=== PATIENT | male | born 1960 | race Caucasian/White ===

== ENCOUNTER 2018-10-31 05:39 | Outpatient (CLI) | payer BC ==
[~2018-10-31] VITALS: Ht 170.2 cm; Wt 116.3 kg
[~2018-10-31 05:39] MED LIST: CLIN-62 PO; HCT25T PO; HYDR1CAP2 PO; HYDR1TAB8 OP; LEVO175T6 PO; NAPR1TAB PO; PRAV80TA2 PO; lisinopril; thyroid med; vytorin
[2018-10-31] MEDS ORDERED: GLUC-219 PO (10:52)
[2018-10-31] MEDS ORDERED: OMEP40CA36 PO (10:52)
[2018-10-31] MEDS ORDERED: NAPR220T66 PO (10:52)
[2018-10-31] MEDS ORDERED: RANI-515 PO (10:52)
[2018-10-31] MEDS ORDERED: LISI1TAB10 PO (10:52)
[2018-10-31] MEDS ORDERED: LEVO175T5 PO (10:52)
== END 2018-10-31 10:57 | disposition home or self-care (01) ==
LOC: PREOP 05:39
PROVIDERS: ATTEND Urology
DX: Z01.818 Encounter for other preprocedural examination (principal)

== ENCOUNTER 2019-06-28 12:07 | Emergency (ER) | payer BC ==
[~2019-06-28] VITALS: Ht 170 cm; Wt 119.9 kg
[~2019-06-28 12:07] MED LIST changes: +GLUC-219 PO; +LEVO175T5 PO; +LISI1TAB26 PO; +NAPR220T66 PO; +OMEP40CA27 PO; +RANI-609 PO
--- NOTE | 2019-06-28 12:56 | ED Integumentary General ---
General Chief Complaint: Laceration Stated Complaint: L INDEX FINGER LAC Nursing Triage Note: PT PRESENTS TO ED WITH COMPLAINTS OF LAC TO L HAND POINTER FINGER NAIL BED WHEN CHANGING OUT BLADES ON [employer] COORDINATOR. Source: patient Exam Limitations: no limitations History of Present Illness Date Seen by Provider: Jun 28, 2019 Time Seen by Provider: 12:56 Initial Comments 59-year-old male patient presents with complaints of a laceration to the left distal second finger including the distal nail. Incident occurred while he was trying to tighten the lawnmower blade and began to spin out of control. He states he does not know how long it's been since his last tetanus vaccination Location Injury Occurred: home Timing/Duration: just prior to arrival Location: hands (left second finger) Possible Cause: other (see history of present illness) Modifying Factors: worse with other (tenderness worse with palpation) Allergies and Home Medications Allergies Coded Allergies: No Known Drug Allergies (Verified , 05/22/08) Home Medications Glucosamine/D3/Boswellia Areli 1 Each Tablet, 1 EACH PO BID, (Reported) Hydrocodone Bit/Acetaminophen 1 Each Capsule, 1-2 EACH PO Q 4 - 6 HRS PRN Prescribed by: AARON PENDLETON on 04/19/10 1037 Levothyroxine Sodium 175 Mcg Tablet, 175 MCG PO DAILY, (Reported) Lisinopril/Hydrochlorothiazide 1 Each Tablet, 1 EACH PO DAILY, (Reported) Naproxen Sodium 220 Mg Tablet, 220 MG PO BID, (Reported) Naproxen Sodium/P-Ephed Hcl 1 Tab.sr .12 H Tab.sr.12h, 1 TAB PO DAILY, (Reported) Omeprazole 40 Mg Capsule.dr, 40 MG PO DAILY, (Reported) Ranitidine HCl 150 Mg Tablet, 150 MG PO DAILY PRN for HEARTBURN, (Reported) Patient Home Medication List Home Medication List Reviewed: Yes Review of Systems Review of Systems Constitutional: no symptoms reported Musculoskeletal: see HPI Skin: see HPI Psychiatric/Neurological: Denies Numbness, Denies Paresthesia, Denies Tingling, Denies Weakness All Other Systems Reviewed Negative Unless Noted: Yes (Negative excepted noted.) Past Cyeckve-Dfrktl-Xvnnzg Hx Past Med/Social Hx: Reviewed Nursing Past Med/Soc Hx Patient Social History Alcohol Use: Denies Use Recreational Drug Use: No Smoking Status: Current Someday Smoker Type Used: Cigarettes 2nd Hand Smoke Exposure: No Recent Foreign Travel: No Contact w/Someone Who Travel: No Recent Infectious Disease Expo: No Recent Hopitalizations: No Physical Abuse: No Sexual Abuse: No Mistreated: No Fear: No Immunizations Up To Date Tetanus Booster (TDap): Unknown PED Vaccines UTD: No Seasonal Allergies Seasonal Allergies: No Past Medical History Surgeries: Yes (bilat CTR, bilat ulnar release) Gallbladder Respiratory: No Cardiac: Yes Hypertension Neurological: No Reproductive Disorders: No Sexually Transmitted Disease: No Genitourinary: Yes Kidney Stones Gastrointestinal: No Musculoskeletal: No Endocrine: Yes Hypothyroidsim HEENT: No Cancer: No Psychosocial: No Integumentary: No Blood Disorders: No Family Medical History Reviewed Nursing Family Hx No Pertinent Family Hx Physical Exam Vital Signs Vital Signs - First Documented 06/28/19 12:20 Temp 36.8 Pulse 97 Resp 20 B/P (MAP) 122/81 (95) Pulse Ox 96 Capillary Refill : Less Than 3 Seconds General Appearance: WD/WN, no apparent distress Cardiovascular: normal peripheral pulses, no edema Extremities: normal range of motion, normal capillary refill, other (1.5 cm laceration involving the distal left second finger including the lateral border of the nail. Mild soft tissue tenderness noted.) Neurologic/Psychiatric: no motor/sensory deficits, alert, normal mood/affect, oriented x 3 Procedures/Interventions Wound Location: Upper Extremities (left index finger) Wound Length (cm): 1.5 Wound's Depth, Shape: superficial (involving lateral nail) Wound Explored: clean Betadine Prep?: Yes (and scrubbed vigorously with chlorhexidine and sterile saline) Anesthesia: 1% Lidocaine (1-1 ratio mixture of 0.5 percent Marcaine and 1 percent lidocaine) Volume Anesthetic (ccs): 4 Wound Debrided: minimal (lateral border of the nail removed) Suture: Vicryl Suture Size: 3-0 Number of Sutures: 1 Layer Closure?: 1 Sterile Dressing Applied?: Yes Progress Blood loss minimal. Patient tolerated the procedure well. Progress/Results/Core Measures Results/Orders My Orders Orders - ARAVIND CROSS Bupivacaine 0.5% Injection (Sensorcaine (06/28/19 13:15) Lidocaine 1% Inj 20 Ml (Xylocaine 1% Inj (06/28/19 13:15) Dipht,Pertuss(Acell),Tet Adult (Boostrix (06/28/19 13:15) Medications Given in ED Current Medications Medications Dose Ordered Sig/Luis Armando Route Start Time Stop Time Status Last Admin Dose Admin Bupivacaine HCl 30 ml ONCE ONCE INJ 06/28/19 13:15 06/28/19 13:16 DC 06/28/19 13:00 30 ML Diphtheria/ Tetanus/Acell Pertussis 0.5 ml ONCE ONCE IM 06/28/19 13:15 06/28/19 13:16 DC 06/28/19 13:25 0.5 ML Lidocaine HCl 20 ml ONCE ONCE INJ 06/28/19 13:15 06/28/19 13:16 DC 06/28/19 13:00 20 ML Vital Signs/I&O 06/28/19 12:20 Temp 36.8 Pulse 97 Resp 20 B/P (MAP) 122/81 (95) Pulse Ox 96 Blood Pressure Mean: 95 Departure Communication (Admissions) Patient seen, evaluated, and wound repair performed. Patient given a 4 pronged AlumaFoam finger splint to begin using tomorrow. Impression Primary Impression: Laceration of left index finger with damage to nail Qualified Codes: S61.311A - Laceration without foreign body of left index finger with damage to nail, initial encounter Disposition: HOME, SELF-CARE Condition: Improved Departure-Patient Inst. Decision time for Depature: 13:05 Referrals: AUSTIN MORE MD (PCP/Family) Primary Care Physician Patient Instructions: Wound Care (DC) Add. Discharge Instructions: All discharge instructions reviewed with patient and/or family. Voiced understanding. Tylenol extra strength [id number] as directed for pain. Ibuprofen 800 mg by mouth every 8 hours as needed for pain. Elevate the left hand on pillows. Ice pack for 20 minute intervals as needed. Tomorrow morning you may remove the bandage and shower with antibacterial soap. Apply triple antibiotic ointment and cover with a bandage. You may use the finger splint as needed to protect the finger while working. Follow-up with Dr. More's office as an outpatient if needed. Return to the emergency department for worsened pain, redness, fever, drainage, or any other concerns. Images Extremities-Upper 1 - laceration Copy Copies To 1: AUSTIN MORE MD, GRETCHEN L PA Jun 28, 2019 12:56
[2019-06-28] MEDS ORDERED: BUPIVACAINE 0.5% 30 ML (SENSORCAINE) VIAL INJ ONE (13:15)
[2019-06-28] MEDS ORDERED: TETANUS,DIPTH,PERTUSS P/F (BOOSTRIX) 0.5 ML VIAL IM ONE (13:15)
[2019-06-28] MEDS ORDERED: LIDOCAINE 1% INJ 20 ML 20 ML VIAL INJ ONE (13:15)
[2019-06-28 13:40] VITALS: BP 142/87
--- OUTSIDE RECORDS SUMMARY | 2019-07-02 00:38 | XMS REPORT ---
Author Author Shukri MENDOZA Organization [facility] Address [address] [place] [address] Care Team Providers Care Staff Development Manager Name Role Phone ZHAO MENDOZA Unavailable PROBLEMS Type Condition ICD9-CM Code FMU30-LQ Code Onset Dates Condition S tatus SNOMED Code Problem Urinary tract infection, site not specified 599.0 Active 03143208 Problem Psychosexual dysfunction with inhibited sexual excitement 302.72 Active 603800447030840 Problem Other specified examination V72.85 Ac tive 975341521 Problem Health examination of defined subpopulation V70.5 Active 928649758 Problem Dysuria 788.1 Active 21006863 Problem Hematuria, unspecified 599.70 Active 02825962 ALLERGIES No Information ENCOUNTERS Encounter Location Date Diagnosis [facility] [address] [id number] [address] [place] [address] [id number] 02 Sep, 2014 Dental examination V72.2 [facility] [address] [facility] [id number] [address] [place] [address] Jul, [facility] [address] [facility] [id number] [address] [place] [address] Jul, [facility] [address] [facility] [id number] [address] [place] [address] Apr, [facility] [address] [facility] [id number] [address] [place] [address] Apr, [facility] [address] [facility] [id number] [address] [place] [address] Feb, [facility] [address] [facility] [id number] [address] [place] [address] Feb, [facility] [address] [facility] [id number] [address] [place] [address] Jan, [facility] [address] [id number] [address] [place] [address], [place] [address] Dec, [facility] [address] [id number] [address] [place] [address], [place] [address] Nov, [facility] [address] [id number] [address] [place] [address], [place] [address] Oct, [facility] [address] [id number] [address] [place] [address], [place] [address] Oct, [facility] [address] [id number] [address] [place] [address], [place] [address] Oct, [facility] [address] [id number] [address] [place] [address], [place] [address] Oct, [facility] [address] [id number] [address] [place] [address], [place] [address] Sep, [facility] [address] [id number] [address] [place] [address], [place] [address] Sep, [facility] [address] [id number] [address] [place] [address], [place] [address] Sep, [facility] [address] [id number] [address] [place] [address], [place] [address] Sep, [facility] [address] [id number] [address] [place] [address], [place] [address] Jul, [facility] [address] [id number] [address] [place] [address] Jul, [facility] [address] [id number] [address] [place] [address], [place] [address] Jul, [facility] [address] [id number] [address] [place] [address], [place] [address] May, [facility] [address] [id number] [address] [place] [address], [place] [address] Apr, [facility] [address] [id number] [address] [place] [address] Apr, [facility] [address] [id number] [address] [place] [address], [place] [address] Apr, [facility] [address] [id number] [address] [place] [address], [place] [address] Apr, [facility] [address] [id number] [address] [place] [address], [place] [address] Feb, [facility] [address] [id number] [address] [place] [address], [place] [address] Feb, [facility] [address] [id number] [address] [place] [address], [place] [address] Feb, [facility] [address] [id number] [address] [place] [address], [place] [address] Jan, [facility] [address] [id number] [address] [place] [address], [place] [address] Jan, [facility] [address] [id number] [address] [place] [address], [place] [address] Jan, [facility] [address] [id number] [address] [place] [address], [place] [address] Jan, [facility] [address] [id number] [address] [place] [address], [place] [address] Dec, [facility] [address] [id number] [address] [place] [address], [place] [address] 15 Dec, 2011 [facility] [address] [id number] [address] [place] [address], [place] [address] Sep, [facility] [address] [id number] [address] [place] [address], [place] [address] Sep, [facility] [address] [id number] [address] [place] [address], [place] [address] Jun, [facility] [address] [id number] [address] [place] [address], [place] [address] Apr, [facility] [address] [facility] [id number] [address] [address] Jan, [facility] [address] [facility] [id number] [address] [address] Jan, IMMUNIZATIONS No Known Immunizations SOCIAL HISTORY Never Assessed REASON FOR VISIT PLAN OF CARE VITAL SIGNS MEDICATIONS Unknown Medications RESULTS No Results PROCEDURES No Known procedures INSTRUCTIONS MEDICATIONS ADMINISTERED No Known Medications
== END 2019-06-28 13:40 | disposition home or self-care (01) ==
LOC: EDUNIT# 12:07 → ER 12:08
DX: S61.311A Laceration without foreign body of left index finger with damage to nail, initial encounter (principal); I10 Essential (primary) hypertension; E03.9 Hypothyroidism, unspecified; F17.210 Nicotine dependence, cigarettes, uncomplicated; Z23 Encounter for immunization; W28.XXXA Contact with powered lawn mower, initial encounter; Y92.009 Unspecified place in unspecified non-institutional (private) residence as the place of occurrence of the external cause
CPT/HCPCS: 12001; 64450; 90715

== ENCOUNTER 2019-10-03 05:30 | Outpatient (RCR) | payer BC ==
[2019-09-24 09:36] VITALS: BP 119/77
[2019-09-24 10:31] LABS: BILIRUBIN,URINE NEGATIVE (NEGATIVE); CLARITY,URINE CLEAR; COLOR,URINE YELLOW; GLUCOSE, URINE (UA) NEGATIVE (NEGATIVE); KETONES,URINE NEGATIVE (NEGATIVE); LEUKOCYTE ESTERASE ,URINE NEGATIVE (NEGATIVE); NITRITE,URINE NEGATIVE (NEGATIVE); PROTEIN,URINE NEGATIVE (NEGATIVE)
[2019-09-24 10:38] LABS: BASOPHILS % (AUTO) 1 % (0-10); EOSINOPHILS # (AUTO) 0.1 10^3/uL (0.0-0.3); EOSINOPHILS % (AUTO) 2 % (0-10); HEMATOCRIT 47 % (40-54); HEMOGLOBIN 15.5 G/DL (13.3-17.7); LYMPHOCYTES # (AUTO) 1.8 X 10^3 (1.0-4.0); LYMPHOCYTES % (AUTO) 28 % (12-44); MEAN CORPUSCULAR HEMOGLOBIN 30 PG (25-34); MEAN CORPUSCULAR HGB CONC 33 G/DL (32-36); MEAN CORPUSCULAR VOLUME 91 FL (80-99); MEAN PLATELET VOLUME 10.9 FL (7.4-10.4); MONOCYTES # (AUTO) 0.4 X 10^3 (0.0-1.0); MONOCYTES % (AUTO) 6 % (0-12); NEUTROPHILS # (AUTO) 4.2 X 10^3 (1.8-7.8); NEUTROPHILS % (AUTO) 64 % (42-75); PLATELET COUNT 184 10^3/uL (130-400); RED CELL DISTRIBUTION WIDTH 14.2 % (10.0-14.5); WHITE BLOOD COUNT 6.6 10^3/uL (4.3-11.0)
[2019-09-24 10:39] LABS: BACTERIA,URINE NEGATIVE /HPF; SQUAMOUS EPITHELIAL CELL,UR 0-2 /HPF
[2019-09-24 10:46] LABS: PROTHROMBIN TIME PATIENT 13.2 SEC (12.2-14.7)
--- NOTE | 2019-09-24 10:51 | Diagnostic Imaging Report ---
INDICATION: Preop for knee replacement surgery. Time of exam 10:16 AM Comparison is made with prior chest 09/03/2008. The heart size is normal. The pulmonary vascularity is unremarkable. The lungs are clear. No infiltrate, effusion or pneumothorax is detected. Impression: No acute cardiopulmonary process is detected. Dictated by: Dictated on workstation # [id number]
[2019-09-24 10:57] LABS: ALANINE AMINOTRANSFERASE 35 U/L (0-55); ALBUMIN 4.1 GM/DL (3.2-4.5); ALKALINE PHOSPHATASE 60 U/L (40-136); BUN/CREATININE RATIO 20; CALCIUM 9.4 MG/DL (8.5-10.1); CARBON DIOXIDE 21 MMOL/L (21-32); CHLORIDE 105 MMOL/L (98-107); CREATININE SERUM 1.08 MG/DL (0.60-1.30); GFR ESTIMATED > 60; GLUCOSE 125 MG/DL (70-105); POTASSIUM 3.7 MMOL/L (3.6-5.0); SODIUM 137 MMOL/L (135-145); TOTAL PROTEIN 7.1 GM/DL (6.4-8.2)
[~2019-10-03] VITALS: Ht 170 cm; Wt 118.9 kg
== END 2019-10-03 13:26 | disposition home or self-care (01) ==
LOC: PREOP 05:30
PROVIDERS: ATTEND Orthopaedic Surgery
DX: Z01.812 Encounter for preprocedural laboratory examination (principal); Z01.811 Encounter for preprocedural respiratory examination; Z01.810 Encounter for preprocedural cardiovascular examination; M17.12 Unilateral primary osteoarthritis, left knee; R53.83 Other fatigue
CPT/HCPCS: 36415; 71046; 80053; 81000; 85025; 85610; 86850; 86900; 86901; 87635

== ENCOUNTER 2019-10-08 05:58 | Inpatient (IN) | payer BC ==
--- NOTE | 2019-09-28 15:40 | HISTORY AND PHYSICAL ---
DATE OF SERVICE: 10/08/2019 DATE OF ADMISSION: 10/08/2019. This will be for inpatient admission for right total knee arthroplasty. SUMMARY: The patient is a 59-year-old gentleman with progressively worsening left knee pain. Radiographs reveal severe medial and patellofemoral arthrosis. He has undergone treatment with injections as well as anti-inflammatories and rest. He reports that he has progressed to the point of the symptoms that he has difficulty with activities of daily living. Because of this, it was elected to proceed with surgical intervention. REVIEW OF SYSTEMS: No chest pain, no shortness of breath, no dysuria. PAST MEDICAL HISTORY: Hypertension. PAST SURGICAL HISTORY: Carpal and cubital tunnel releases bilaterally, cholecystectomy and left knee arthroscopy. FAMILY HISTORY: Noncontributory. PRIMARY CARE PROVIDER: Dr. More. MEDICATIONS: Hydrochlorothiazide, diclofenac, hydrocodone. ALLERGIES: No known drug allergies. SOCIAL HISTORY: The patient denies alcohol use, denies tobacco use. PHYSICAL EXAMINATION: GENERAL: The patient is well developed, well-nourished, in no acute distress. HEENT: Normocephalic, atraumatic. Pupils are equal, round and reactive to light. Oropharynx is clear. NECK: Supple, no lymphadenopathy. LUNGS: Clear to auscultation bilaterally. HEART: Regular rate and rhythm. ABDOMEN: Soft, nontender, nondistended. EXTREMITIES: The left knee demonstrates mild effusion. There is no erythema or warmth. Range of motion is 0/2/120. He has negative anterior drawer, negative posterior drawer. No varus valgus laxity. He is tender along his medial joint line. He has crepitus with range of motion. Pain with patellar loading. He ambulates with an antalgic gait. IMPRESSION: Severe left knee osteoarthritis, unresponsive to conservative measures. PLAN: Left total knee arthroplasty. Risks, benefits, options, ramifications and recovery have been discussed at length with the patient. He understands and wishes to proceed. He will require regular inpatient admission due to pain management, need for physical therapy and comorbidities. Job ID: [id number] DocumentID: [id number] Dictated Date: 09/28/2019 14:49:22 Music Artist Date: 09/28/2019 15:39:34 Dictated By: MARK ANTHONY GONZALES MD
[2019-10-08] VITALS (13 sets, daily range): BP systolic 132–181; BP diastolic 58–106
[~2019-10-08] VITALS: Ht 170 cm; Wt 118.9 kg
--- OUTSIDE RECORDS SUMMARY | 2019-10-08 06:04 | XMS REPORT ---
Author Author Shukri MENDOZA Organization [facility] Address [address] [place] [address] Care Team Providers Care Program Management Specialist Name Role Phone ZHAO MENDOZA Unavailable PROBLEMS Type Condition ICD9-CM Code UQT07-YP Code Onset Dates Condition S tatus SNOMED Code Problem Urinary tract infection, site not specified 599.0 Active 50762712 Problem Psychosexual dysfunction with inhibited sexual excitement 302.72 Active 499691541738009 Problem Other specified examination V72.85 Ac tive 090443596 Problem Health examination of defined subpopulation V70.5 Active 169917134 Problem Dysuria 788.1 Active 50204281 Problem Hematuria, unspecified 599.70 Active 36034684 ALLERGIES No Information ENCOUNTERS Encounter Location Date Diagnosis [facility] [address] [id number] [place] [id number] Sep, Dental examination V72.2 [facility] [address] [address] Jul, [facility] [address] [address] Jul, [facility] [address] [address] Apr, [facility] [address] [address] Apr, [facility] [address] [address] Feb, [facility] [address] [address] Feb, [facility] [address] [address] Jan, [facility] [address] [address] Dec, [facility] [address] [facility] [id number] [facility] [place] [address] Nov, [facility] [address] [id number] [place] [address] Oct, [facility] [address] [id number] [place] [address] Oct, [facility] [address] [id number] [place] [address] Oct, [facility] [address] [id number] [place] [address] Oct, [facility] [address] [id number] [place] [address] Sep, [facility] [address] [id number] [place] [address] Sep, [facility] [address] [id number] [place] [address] Sep, [facility] [address] [id number] [place] [address] Sep, [facility] [address] [id number] [place] [address] Jul, [facility] [address] [id number] [place] [address] Jul, [facility] [address] [id number] [place] [address] Jul, [facility] [address] [id number] [place] [address] May, [facility] [address] [id number] [place] [address] Apr, [facility] [address] [id number] [place] [address] Apr, [facility] [address] [id number] [place] [address] Apr, [facility] [id number] [place] [address] Apr, [facility] [id number] [place] [address] Feb, [facility] [id number] [place] [address] Feb, [facility] [id number] [place] [address] Feb, [facility] [id number] [place] [address] Jan, [facility] [id number] [place] [address] Jan, [facility] [id number] [place] [address] Jan, [facility] [id number] [place] [address] Jan, [facility] [id number] [place] [address] Dec, [facility] [id number] [place] [address] Dec, [facility] [id number] [place] [address] Sep, [facility] [id number] [place] [address] Sep, [facility] [id number] [place] [address] Jun, [facility] [id number] [place] [address] Apr, [facility] [id number] [place] [address] Jan, [facility] [id number] [place] [address] Jan, IMMUNIZATIONS No Known Immunizations SOCIAL HISTORY Never Assessed REASON FOR VISIT PLAN OF CARE VITAL SIGNS MEDICATIONS Unknown Medications RESULTS No Results PROCEDURES No Known procedures INSTRUCTIONS MEDICATIONS ADMINISTERED No Known Medications
--- OUTSIDE RECORDS SUMMARY | 2019-10-08 06:04 | XMS REPORT ---
Author Author Shukri MENDOZA Organization [facility] Address [address] [place] [address] Care Team Providers Care Retort Fireman Name Role Phone ZHAO MENDOZA Unavailable PROBLEMS Type Condition ICD9-CM Code YPG76-OT Code Onset Dates Condition S tatus SNOMED Code Problem Urinary tract infection, site not specified 599.0 Active 33644129 Problem Psychosexual dysfunction with inhibited sexual excitement 302.72 Active 413704788371988 Problem Other specified examination V72.85 Ac tive 935851629 Problem Health examination of defined subpopulation V70.5 Active 010908367 Problem Dysuria 788.1 Active 59700307 Problem Hematuria, unspecified 599.70 Active 35590513 ALLERGIES No Information ENCOUNTERS Encounter Location Date Diagnosis [facility] [address] [id number] [address] [place] [address] [id number] 02 Sep, 2014 Dental examination V72.2 [facility] [address] [facility] [id number] [address] [place] [phone] Jul, [facility] [address] [facility] [id number] [address] [place] [address] Jul, [facility] [address] [facility] [id number] [address] [place] [address] Apr, [facility] [address] [facility] [id number] [address] [place] [phone] Apr, [facility] [address] [facility] [id number] [address] [place] [address] Feb, [facility] [address] [facility] [id number] [address] [place] [address] Feb, [facility] [address] [facility] [id number] [address] [place] [phone] Jan, [facility] [address] [id number] [address] [place] [address], [place] [address] Dec, [facility] [address] [id number] [address] [place] [address], [place] [address] Nov, [facility] [address] [id number] [address] [place] [address], [place] [address] Oct, [facility] [address] [id number] [address] [place] [address], [place] [address] Oct, [facility] [address] [id number] [address] [place] [address], [place] [address] Oct, [facility] [address] [id number] [address] [place] [address], [place] [address] Oct, [facility] [address] [id number] [address] [place] [address], [place] [address] Sep, [facility] [address] [id number] [address] [place] [address], [place] [address] Sep, [facility] [address] [id number] [address] [place] [address], [place] [address] Sep, [facility] [address] [id number] [address] [place] [address], [place] [address] Sep, [facility] [address] [id number] [address] [place] [address], [place] [address] Jul, [facility] [address] [id number] [address] [place] [phone] Jul, [facility] [address] [id number] [address] [place] [address], [place] [address] Jul, [facility] [address] [id number] [address] [place] [address], [place] [address] May, [facility] [address] [id number] [address] [place] [address], [place] [address] Apr, [facility] [address] [id number] [address] [place] [phone] Apr, [facility] [address] [id number] [address] [place] [address], [place] [address] Apr, [facility] [address] [id number] [address] [place] [address], [place] [address] Apr, [facility] [address] [id number] [address] [place] [address], [place] [address] Feb, [facility] [address] [id number] [address] [place] [address], [place] [address] Feb, [facility] [address] [id number] [address] [place] [address], [place] [address] Feb, [facility] [address] [id number] [address] [place] [address], [place] [address] Jan, [facility] [address] [id number] [address] [place] [address], [place] [address] Jan, [facility] [address] [id number] [address] [place] [address], [place] [address] Jan, [facility] [address] [id number] [address] [place] [address], [place] [address] Jan, [facility] [address] [id number] [address] [place] [address], [place] [address] Dec, [facility] [address] [id number] [address] [place] [address], [place] [address] 15 Dec, 2011 [facility] [address] [id number] [address] [place] [address], [place] [address] Sep, [facility] [address] [id number] [address] [place] [address], [place] [address] Sep, [facility] [address] [id number] [address] [place] [address], [place] [address] Jun, [facility] [address] [id number] [address] [place] [address], [place] [address] Apr, [facility] [address] [facility] [id number] [address] [address] Jan, [facility] [address] [facility] [id number] [address] [address] Jan, IMMUNIZATIONS No Known Immunizations SOCIAL HISTORY Never Assessed REASON FOR VISIT PLAN OF CARE VITAL SIGNS MEDICATIONS Unknown Medications RESULTS No Results PROCEDURES No Known procedures INSTRUCTIONS MEDICATIONS ADMINISTERED No Known Medications
--- OUTSIDE RECORDS SUMMARY | 2019-10-08 06:04 | XMS REPORT ---
Author Author Shukri MENDOZA Organization [facility] Address [address] [place] [address] Care Team Providers Care Hospice Entrance Attendant Name Role Phone ZHAO MENDOZA Unavailable PROBLEMS Type Condition ICD9-CM Code GIS66-MS Code Onset Dates Condition S tatus SNOMED Code Problem Urinary tract infection, site not specified 599.0 Active 19832469 Problem Psychosexual dysfunction with inhibited sexual excitement 302.72 Active [id number] Problem Other specified examination V72.85 Ac tive 976416504 Problem Health examination of defined subpopulation V70.5 Active 977380680 Problem Dysuria 788.1 Active 07933920 Problem Hematuria, unspecified 599.70 Active 21781385 ALLERGIES No Information ENCOUNTERS Encounter Location Date Diagnosis [facility] [address] [id number] [address] [place] [address] [id number] 02 Sep, 2014 Dental examination V72.2 [facility] [address] [facility] [id number] [address] [place] [phone] Jul, [facility] [address] [facility] [id number] [address] [place] [address] Jul, [facility] [address] [facility] [id number] [address] [place] [address] Apr, [facility] [address] [facility] [id number] [address] [place] [phone] Apr, [facility] [address] [facility] [id number] [address] [place] [address] Feb, [facility] [address] [facility] [id number] [address] [place] [phone] Feb, [facility] [address] [facility] [id number] [address] [place] [phone] Jan, [facility] [address] [id number] [address] [place] [address], [place] [address] Dec, [facility] [address] [id number] [address] [place] [address], [place] [address] Nov, [facility] [address] [id number] [address] [place] [address], [place] [address] Oct, [facility] [address] [id number] [address] [place] [address], [place] [address] Oct, [facility] [address] [id number] [address] [place] [address], [place] [address] Oct, [facility] [address] [id number] [address] [place] [address], [place] [address] Oct, [facility] [address] [id number] [address] [place] [address], [place] [address] Sep, [facility] [address] [id number] [address] [place] [address], [place] [address] Sep, [facility] [address] [id number] [address] [place] [address], [place] [address] Sep, [facility] [address] [id number] [address] [place] [address], [place] [address] Sep, [facility] [address] [id number] [address] [place] [address], [place] [address] Jul, [facility] [address] [id number] [address] [place] [phone] Jul, [facility] [address] [id number] [address] [place] [address], [place] [address] Jul, [facility] [address] [id number] [address] [place] [address], [place] [address] May, [facility] [address] [id number] [address] [place] [address], [place] [address] Apr, [facility] [address] [id number] [address] [place] [phone] Apr, [facility] [address] [id number] [address] [place] [address], [place] [address] Apr, [facility] [address] [id number] [address] [place] [address], [place] [address] Apr, [facility] [address] [id number] [address] [place] [address], [place] [address] Feb, [facility] [address] [id number] [address] [place] [address], [place] [address] Feb, [facility] [address] [id number] [address] [place] [address], [place] [address] Feb, [facility] [address] [id number] [address] [place] [address], [place] [address] Jan, [facility] [address] [id number] [address] [place] [address], [place] [address] Jan, [facility] [address] [id number] [address] [place] [address], [place] [address] Jan, [facility] [address] [id number] [address] [place] [address], [place] [address] Jan, [facility] [address] [id number] [address] [place] [address], [place] [address] Dec, [facility] [address] [id number] [address] [place] [address], [place] [address] 15 Dec, 2011 [facility] [address] [id number] [address] [place] [address], [place] [address] Sep, [facility] [address] [id number] [address] [place] [address], [place] [address] Sep, [facility] [address] [id number] [address] [place] [address], [place] [address] Jun, [facility] [address] [id number] [address] [place] [address], [place] [address] Apr, [facility] [address] [facility] [id number] [address] [address] Jan, [facility] [address] [facility] [id number] [address] [address] Jan, IMMUNIZATIONS No Known Immunizations SOCIAL HISTORY Never Assessed REASON FOR VISIT PLAN OF CARE VITAL SIGNS MEDICATIONS Unknown Medications RESULTS No Results PROCEDURES No Known procedures INSTRUCTIONS MEDICATIONS ADMINISTERED No Known Medications
--- OUTSIDE RECORDS SUMMARY | 2019-10-08 06:04 | XMS REPORT ---
Author Author Shukri MENDOZA Organization [facility] Address [address] [place] [address] Care Team Providers Care Boiling Tub Operator Name Role Phone ZHAO MENDOZA Unavailable PROBLEMS Type Condition ICD9-CM Code QGO30-VZ Code Onset Dates Condition S tatus SNOMED Code Problem Urinary tract infection, site not specified 599.0 Active 84252917 Problem Psychosexual dysfunction with inhibited sexual excitement 302.72 Active 436938261994190 Problem Other specified examination V72.85 Ac tive 855100336 Problem Health examination of defined subpopulation V70.5 Active 437500824 Problem Dysuria 788.1 Active 96694390 Problem Hematuria, unspecified 599.70 Active 63122875 ALLERGIES No Information ENCOUNTERS Encounter Location Date Diagnosis [facility] [address] [id number] [address] [place] [id number] 02 Sep, 2014 Dental examination V72.2 [facility] [address] [facility] [id number] [address] [place] [phone] Jul, [facility] [address] [facility] [id number] [address] [place] [address] Jul, [facility] [address] [facility] [id number] [address] [place] [address] Apr, [facility] [address] [facility] [id number] [address] [place] [address] Apr, [facility] [address] [facility] [id number] [address] [place] [address] Feb, [facility] [address] [facility] [id number] [address] [place] [address] Feb, [facility] [address] [facility] [id number] [address] [place] [address] Jan, [facility] [address] [id number] [address] [place] [address], [place] [address] Dec, [facility] [address] [id number] [address] [place] [address], [place] [address] Nov, [facility] [address] [id number] [address] [place] [address], [place] [address] Oct, [facility] [address] [id number] [address] [place] [address], [place] [address] Oct, [facility] [address] [id number] [address] [place] [address], [place] [address] Oct, [facility] [address] [id number] [address] [place] [address], [place] [address] Oct, [facility] [address] [id number] [address] [place] [address], [place] [address] Sep, [facility] [address] [id number] [address] [place] [address], [place] [address] Sep, [facility] [address] [id number] [address] [place] [address], [place] [address] Sep, [facility] [address] [id number] [address] [place] [address], [place] [address] Sep, [facility] [address] [id number] [address] [place] [address], [place] [address] Jul, [facility] [address] [id number] [address] [place] [phone] Jul, [facility] [address] [id number] [address] [place] [address], [place] [id number] Jul, [facility] [address] [id number] [address] [place] [address], [place] [address] May, [facility] [address] [id number] [address] [place] [address], [place] [address] Apr, [facility] [address] [id number] [address] [place] [phone] Apr, [facility] [address] [id number] [address] [place] [address], [place] [address] Apr, [facility] [address] [id number] [address] [place] [address], [place] [address] Apr, [facility] [address] [id number] [address] [place] [address], [place] [address] Feb, [facility] [address] [id number] [address] [place] [address], [place] [address] Feb, [facility] [address] [id number] [address] [place] [address], [place] [address] Feb, [facility] [address] [id number] [address] [place] [address], [place] [address] Jan, [facility] [address] [id number] [address] [place] [address], [place] [address] Jan, [facility] [address] [id number] [address] [place] [address], [place] [address] Jan, [facility] [address] [id number] [address] [place] [address], [place] [address] Jan, [facility] [address] [id number] [address] [place] [address], [place] [address] Dec, [facility] [address] [id number] [address] [place] [address], [place] [address] 15 Dec, 2011 [facility] [address] [id number] [address] [place] [address], [place] [address] Sep, [facility] [address] [id number] [address] [place] [address], [place] [address] Sep, [facility] [address] [id number] [address] [place] [address], [place] [address] Jun, [facility] [address] [id number] [address] [place] [address], [place] [address] Apr, [facility] [address] [facility] [id number] [address] [address] Jan, [facility] [address] [facility] [id number] [address] [address] Jan, IMMUNIZATIONS No Known Immunizations SOCIAL HISTORY Never Assessed REASON FOR VISIT PLAN OF CARE VITAL SIGNS MEDICATIONS Unknown Medications RESULTS No Results PROCEDURES No Known procedures INSTRUCTIONS MEDICATIONS ADMINISTERED No Known Medications
[2019-10-08] MEDS ORDERED: CEFUROXIME INJECTION 1,500 MG in WATER (STERILE) FOR INJECTION 15 ML IV ONE (06:15)
[2019-10-08] MEDS: LACTATED RINGERS 1,000 ML IV PRN ×2 (06:38→08:05)
[2019-10-08] MEDS ORDERED: LIDOCAINE PF 2% 5 ML (XYLOCAINE) VIAL ONE ×2 (06:43→07:53)
[2019-10-08] MEDS ORDERED: MIDAZOLAM 2 MG/2 ML (VERSED) VIAL ONE (06:43)
[2019-10-08] MEDS ORDERED: CATHETER FLUSH 10 ML SYR IV PRN (07:00)
[2019-10-08] MEDS ORDERED: diphenhydrAMINE 50 MG/ML INJ (BENADRYL) IVP PRN (07:15)
[2019-10-08] MEDS ORDERED: ACETAMINOPHEN 325 MG TABLET PO PRN (07:15)
[2019-10-08] MEDS ORDERED: ONDANSETRON 4 MG/2 ML (SDV) Z0FRAN IVP PRN ×2 (07:15→09:45)
[2019-10-08] MEDS ORDERED: fentaNYL INJECTION 100 MCG/2 ML AMP ONE ×2 (07:26→07:59)
--- NOTE | 2019-10-08 07:30 | Progress Note-Post Operative ---
Post-Operative Progess Note Surgeon (s)/Access Specialist (s) Surgeon MARK ANTHONY GONZALES MD Access Specialist: Burt Rosenthal Pre-Operative Diagnosis left knee primary osteoarthritis Post-Operative Diagnosis left knee primary osteoarthritis Procedure & Operative Findings Date of Procedure 10/08/19 Procedure Performed/Findings left total knee arthroplasty Anesthesia Type GETA Estimated Blood Loss Estimated blood loss (mL): minimal Specimens/Packing Specimens Removed none Packing: none MARK ANTHONY GONZALES MD Oct 08, 2019 07:30
--- NOTE | 2019-10-08 07:30 | Progress Note-Pre Operative ---
Pre-Operative Progress Note H&P Reviewed The H&P was reviewed, patient examined and no changes noted. Date Seen by Provider: Oct 08, 2019 Time Seen by Provider: 07:15 Date H&P Reviewed: Oct 08, 2019 Time H&P Reviewed: 07:11 Pre-Operative Diagnosis: left knee primary osteoarthritis MARK ANTHONY GONZALES MD Oct 08, 2019 07:30
[2019-10-08] MEDS ORDERED: OXYC1TAB87 PO (07:32)
--- NOTE | 2019-10-08 07:33 | D/C HH Face to Face Order ---
D/C Face to Face Orders Reconcile Patient Problems Problems Reviewed?: Yes Instructions for Patient Via [employer], Patient Instructions/FollowUp: three weeks Physician to follow Patient: three weeks Discharge Diet for Home: No Restrictions Patient Data-Allergies,Ht & Wt Patient Allergies: Coded Allergies: No Known Drug Allergies (Unverified , 09/24/19) Height (Feet): 5 Height (Inches): 7.00 Weight (Pounds): 256 Weight (Ounces): 6.0 Home Health Need/Face to Face Date of Face to Face: Oct 08, 2019 Clinical Findings: Instability, Muscle weakness, Pain with ambulation, Unsteady gait I have seen Pt pysd-xr-qyxo: Yes Discharged To: Home Diagnosis/Conditions: left total knee arthroplasty Patient is Homebound due to: Lexy fall risk due to instabilty, Muscle weakness, Pain w/ambulation Homebound Status Due to the above stated illness, injury or surgical procedure (medical condition or diagnosis) and associated clinical findings, the patient is homebound because of his/her inability to leave home except with aid of a supportive device and/or person AND leaving the home requires a considerable and taxing effort or is medically contraindicated. Pt req the following assistanc: [facility] Nursing Orders Home Health Services Order: Physical Therapy-Evaluate & Treat DC left knee rosendo and apply steri strips 10/22/19 Home Health Infusion Therapy Line Start Date: Oct 08, 2019 Therapy Orders Therapy Orders: Physical Therapy, PT to assess for OT Therapy Specific Orders: Eval assistive deivces, Teach enviro modifications/safety, Gait training, Increase strength/endurance, Provider maintenance therapy, Restore ROM Certify Stmt I certify that this patient is under my care and that I, a nurse practitioner or a physician; a fleet assistant working with me, had a face to face encounter that - meets the physician face to face encounter requirements with this patient as dated. MARK ANTHONY GONZALES MD Oct 08, 2019 07:33
[2019-10-08] MEDS ORDERED: INTRA-ARTICULAR IU ONE ×5 (07:45)
[2019-10-08] MEDS ORDERED: proPOfol 200 MG/20 ML (DIPRIVAN) VIAL IV ONE (07:53)
[2019-10-08] MEDS ORDERED: DEXAMETHASONE 10 MG/ML (DECADRON) 1 ML VIAL ONE (07:53)
[2019-10-08] MEDS ORDERED: BUPIVACAINE 0.5% 30 ML (SENSORCAINE) VIAL ONE (07:53)
[2019-10-08] MEDS ORDERED: ONDANSETRON 4 MG/2 ML (SDV) Z0FRAN ONE ×2 (07:53→09:32)
[2019-10-08] MEDS ORDERED: SEVOFLURANE (ULTANE) 15 ML INHAL SOLN ONE ×6 (07:53→09:08)
[2019-10-08] MEDS ORDERED: TRANEXAMIC ACID 100 MG/ML 10 ML INJECTION IV ONE (08:07)
[2019-10-08] MEDS ORDERED: morphine PCA 100 MG/100 ML BAG IV PRN (09:00)
[2019-10-08] MEDS ORDERED: morphine INJ 10 MG/ML 1ML (SYR OR VIAL) ONE (09:32)
[2019-10-08] MEDS ORDERED: HYDROmorphone 2 MG/ML VIAL (DILAUDID) ONE (09:45)
[2019-10-08] MEDS ORDERED: HYDROmorphone 2 MG/ML VIAL (DILAUDID) IV ONE (09:45)
[2019-10-08] MEDS ORDERED: morphine INJ 10 MG/ML 1ML (SYR OR VIAL) IVP ONE (09:45)
--- NOTE | 2019-10-08 10:20 | NUR ---
PEDRO PABLO HAWLEY admitted to [id number], with an admitting diagnosis of post op left total knee, on 10/08/19 from PACU via bed, accompanied by staff.PEDRO PABLO HAWLEY introduced to surroundings, call light, bed controls, phone, TV, temperature control, lights, meal times, smoking policy, visitor policy, side rail policy, bathrooms and showers. Patient Rights given to patient in the handbook. PEDRO PABLO HAWLEY verbalizes understanding that [facility] is not responsible for the loss or damage to any personal effects or valuables that are kept in the patients posession during their hospitalization. PEDRO PABLO HAWLEY verbalizes understanding of Interdisciplinary Patient Education. Patient and/or family were informed about the Rapid Response Team and its purpose.
--- NOTE | 2019-10-08 10:32 | Diagnostic Imaging Report ---
INDICATION: Postoperative. TECHNIQUE: 2 post operative radiographs of the left knee CORRELATION STUDY: None FINDINGS: There are postsurgical changes of a total knee arthroplasty. Alignment is anatomic. Installed hardware appearing unremarkable. Linear lucency through the distal central femur and proximal tibia. Overlying soft tissue gas collections and skin rosendo are present. IMPRESSION: Postsurgical changes of a left knee replacement. Dictated by: Dictated on workstation # [id number]
--- NOTE | 2019-10-08 10:40 | Progress Note ---
Standard Progress Note Progress Notes/Assess & Plan Date Seen by a Provider: Oct 08, 2019 Time Seen by a Provider: 09:45 Progress/Assessment & Plan post op check no complaints radiographs--HW well positioned without fracture LLE--2 plus DP pulse with brisk cap refill. Intact DF and PF of toes and ankle with intact sensation throughout s/p LTKA mobilize as able MARK ANTHONY GONZALES MD Oct 08, 2019 10:40
[2019-10-08] MEDS ORDERED: NS IV 1000 ML 1,000 ML ONE (11:03)
[2019-10-08] MEDS: NS IV 1000 ML 1,000 ML IV SCH ×2 (11:08→19:44)
[2019-10-08] MEDS: oxyCODONE/APAP 5/325MG (PERCOCET 5) TABLET PO PRN ×3 (11:55→18:19)
[2019-10-08] MEDS: SENNA W/DOCUSATE (SENOKOT S) TABLET PO SCH ×2 (11:55→20:10)
--- NOTE | 2019-10-08 12:03 | OPERATIVE REPORT ---
DATE OF SERVICE: 10/08/2019 PREOPERATIVE DIAGNOSIS: Left knee osteoarthritis. POSTOPERATIVE DIAGNOSIS: Left knee osteoarthritis. PROCEDURE PERFORMED: Left total knee arthroplasty. SURGEON: Juan Gonzales MD. MOTEL CLERK: Burt Rosenthal, who assisted throughout the procedure and closed the incisions. ANESTHESIA: General endotracheal by Milena Chambers CRNA. TOURNIQUET TIME: Approximately 70 minutes at 300 mmHg. ESTIMATED BLOOD LOSS: Minimal. DRAINS: None. COMPLICATIONS: None. POSTOPERATIVE PLAN: Routine protocol. The patient was transferred to the recovery room awake and in stable condition. MATERIALS: Microport cemented size 5 femur, cemented size 5 tibia with a 10 mm insert and a cemented size 32 patellar button. STATEMENT OF MEDICAL NECESSITY: The patient is a 59-year-old gentleman with a longstanding progressive left knee pain. Radiographs revealed severe medial and patellofemoral arthrosis. He has undergone treatment with injections, arthroscopy and anti-inflammatories without relief. He reported progressive functional impairment and due to failure to improve with conservative measures, the patient elected to proceed with surgical intervention. DESCRIPTION OF PROCEDURE: After risks and benefits of the procedure were discussed and questions were answered, an informed consent was signed and placed on chart, the operative site was confirmed in the preoperative holding area initialed by the surgeon. The patient was then transferred to the operating room and after adequate levels of general endotracheal anesthetic were obtained and a timeout was called, confirming the operative site, the left lower extremity was prepped and draped in the usual sterile fashion with the leg elevated and the knee flexed, tourniquet was inflated to 300 mmHg. A standard anterior approach was utilized. Hemostasis was obtained with cautery. Medial parapatellar arthrotomy was performed leaving 1 cm cuff on the patella for later reattachment. A portion of the fat pad was resected and a subperiosteal release was performed in the proximal medial tibia being careful to stay on the bony surface. The ACL was resected. Intramedullary guide was passed into the femur and the distal cutting block was placed. Distal cut was made and the femur was sized to a size 5, the 5 cutting block was placed parallel to the epicondylar axis and cuts were made from posterior to anterior. Subperiosteal release was then carefully performed on the posterior distal femur, being careful to stay on the bony surface. Intramedullary guide was then passed into the tibia. The cutting block was pinned into position. The drop ifrah transected the intermalleolar axis and cut was made. The baseplate was placed and this was transected. The intermalleolar axis was prepared with the drill and keel punch. A 10 mm trial was inserted. The femoral trial was placed and the trochlear cut was made. The patella was prepared by using the freehand technique and resected 10 mm off the undersurface. Peg guide was placed and peg holes were drilled. The 32 trial button was placed. The knee was taken through range of motion. Full extension was easily obtained, 120 degrees of flexion with gravity was easily obtained. The patella tracked well. There was no anterior/posterior or medial/lateral laxity in flexion or extension. The trials were removed. Joint was irrigated with pulse lavage. The periarticular block was placed in the posterior capsule, medial and lateral retinaculum, extensor mechanism, subcutaneous tissues. The bone ends were irrigated and dried. The tibial baseplate was cemented into position. Excessive cement was removed. Superior surface was irrigated and dried and the polyethylene insert was placed. The distal femur was irrigated and dried and the femoral prosthesis was cemented into position. Excessive cement was removed. The knee was brought into full extension until the cement had cured. The undersurface of the patella was irrigated and dried. The patellar button was cemented into position. Once the cement had cured, the knee was taken through range of motion and the patella tracked well. There was no anterior/posterior and in flexion or extension and range of motion was 0/0/120 with gravity. The joint was further irrigated with pulse lavage. The arthrotomy was closed with #2 Tevdek in a tgshut-vz-bnoko interrupted fashion. The wound was further irrigated. The knee was flexed. No undue tension was noted at the repair site. The patella tracked well. A total of 6 liters of irrigation was used throughout the procedure. A 0 Vicryl was used at the deep subcutaneous tissue, 2-0 Vicryl for the superficial subcutaneous tissue and rosendo were used on the skin. A soft dressing was applied and tourniquet was deflated and the patient was transported to the recovery room, awake and in stable condition. Job ID: [id number] DocumentID: [id number] Dictated Date: 10/08/2019 09:23:13 Weed Cooking Operator Date: 10/08/2019 12:02:15 Dictated By: JUAN GONZALES MD
--- NOTE | 2019-10-08 12:07 | NUR ---
Pt has no christian preference and expressed no spiritual needs. Oss Architect offered blessing.
--- NOTE | 2019-10-08 13:55 | Consultation - Hospitalist ---
HPI History of Present Illness: HPI/Chief Complaint Pt is a 60yoCM with a PMH of hypothyroidism and HTN who was admitted follow TKA due to osteoarthritis. He reports feeling well but having pain. 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 He has no other concerns. He is currently eating lunch. I am consulted for medical management. Source: patient Date Seen 10/08/19 Attending Physician Juan Manzano MD PCP Justin More MD Referring Physician Date of Admission Oct 08, 2019 at 05:58 Home Medications & Allergies Home Medications Reviewed patient Home Medication Reconciliation performed by pharmacy medication reconciliations business office technician and/or nursing. Patients Allergies have been reviewed. Allergies Allergies Coded Allergies No Known Drug Allergies (Unverified09/24/19) Past Wykjrth-Yemxvh-Hwfzbn Hx Past Med/Social Hx: Reviewed Nursing Past Med/Soc Hx Patient Social History Marrital Status: Alcohol Use: Denies Use Recreational Drug Use: No Smoking Status: Current Everyday Smoker (10-15 per day) Type Used: Cigarettes 2nd Hand Smoke Exposure: No Physical Abuse Screen: No Sexual Abuse: No Recent Foreign Travel: No Contact w/other who traveled: No Recent Hopitalizations: No Recent Infectious Disease Expo: No Immunizations Up To Date Tetanus Booster (TDap): Unknown Pediatric: No Seasonal Allergies Seasonal Allergies: No Past Medical History Surgeries: Gallbladder Currently Using CPAP: No Currently Using BIPAP: No Cardiac: Hypertension Reproductive: No Sexually Transmitted Disease: No HIV/AIDS: No Genitourinary: Kidney Stones Musculoskeletal: Arthritis Endocrine: Hypothyroidsim Loss of Vision: Denies Hearing Impairment: Denies History of Blood Disorders: No Adverse Reaction to Blood Johnson: No (N/A) Family History No Pertinent Family Hx Review of Systems Constitutional: No chills, No fever EENTM: no symptoms reported Respiratory: no symptoms reported Cardiovascular: no symptoms reported Gastrointestinal: no symptoms reported Genitourinary: no symptoms reported Musculoskeletal: see HPI, joint pain Skin: no symptoms reported Psychiatric/Neurological: No Symptoms Reported Physical Exam Physical Exam Vital Signs Vital Signs - First Documented 10/08/19 06:00 Temp 36.3 Pulse 80 Resp 18 B/P (MAP) 140/89 (106) Pulse Ox 97 O2 Delivery Room Air Capillary Refill : Less Than 3 Seconds Height, Weight, BMI Height: 5'7.00" Weight: 256lbs. 6.0oz. [id number]; 41.14 BMI Method:Stated General Appearance: No Apparent Distress, WD/WN, Obese HEENT: Moist Mucous Membranes Neck: Normal Inspection Respiratory: Lungs Clear, No Accessory Muscle Use, No Respiratory Distress, Other (nasal cannula out of nose) Cardiovascular: Regular Rate, Rhythm, No Murmur Gastrointestinal: Normal Bowel Sounds, Non Tender, Soft Extremity: No Calf Tenderness, Other (left knee in surgical dressing) Neurologic/Psychiatric: Alert, Oriented x3, Normal Mood/Affect Results Results/Procedures Labs Patient resulted labs reviewed. 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
[2019-10-08] MEDS ORDERED: PATIENT MAY USE OWN MEDS, ALL MC SCH (14:00)
--- NOTE | 2019-10-08 14:26 | Physical Therapy Evaluation ---
PT Evaluation-General Medical Diagnosis Admission Date Oct 08, 2019 at 05:58 Medical Diagnosis: left TKA Onset Date: Oct 08, 2019 Therapy Diagnosis Therapy Diagnosis: impaired mobility, strength, endurance, ROM Height/Weight Height (Feet): 5 Height (Inches): 7.00 Weight (Pounds): 256 Weight (Ounces): 6.0 Precautions Precautions/Isolations: Standard Precautions Weight Bear Status Left Lower Extremity: Left Weight Bearing/Tolerated Referral Physician: Galo Reason for Referral: Evaluation/Treatment Medical History Pertinent Medical History: HTN Additional Medical History PAST SURGICAL HISTORY: Carpal and cubital tunnel releases bilaterally, cholecystectomy and left knee arthroscopy. Reviewed History: Yes Social History Home: Single Level Current Living Status: Spouse Entry Into Home: Stairs Without Railing PT Steps Into Home: 2 Prior Prior Level of Function SCALE: Activities may be completed with or without assistive devices. 3-Cxplymuxiw-pajqrfr completes the activity by him/herself with no assistance from a helper. 5-Set-up or Clean-up Assistance-helper sets up or cleans up; patient completes activity. Loa assists only prior to or following the activity. 4-Supervision or Touching Assistance-helper provides verbal cues and/or touching/steadying and/or contact guard assistance as patient completes activity. Assistance may be provided throughout the activity or intermittently. 3-Partial/Moderate Assistance-helper does LESS THAN HALF the effort. Loa lifts, holds or supports trunk or limbs, but provides less than half the effort. 2-Substantial/Maximal Assistance-helper does MORE THAN HALF the effort. Loa lifts or holds trunk or limbs and provides more than half the effort. 7-Bdobvqhay-czvfjh does ALL the effort. Patient does none of the effort to complete the activity. Or, the assistance of 2 or more helpers is required for the patient to complete the activity. If activity was not attempted, code reason: 7-Patient Refused. 9-Not Applicable-not attempted and the patient did not perform the activity before the current illness, exacerbation or injury. 10-Not Attempted due to Environmental Limitations-(lack of equipment, weather restraints, etc.). 88-Not Attempted due to Medical Conditions or Safety Concerns. Bed Mobility: 6 Transfers (B,C,W/C): 6 Gait: 6 Stairs: 6 Indoor Mobility (Ambulation): Independent Stairs: Independent PT Evaluation-Current Subjective Patient in bed pre tx, agrees to PT, has no pain, states his left knee is numb. Pt/Family Goals to be independent at home Objective Patient Orientation: Person, Place, Situation Attachments: Polar Pack, IV ROM/Strength ROM Lower Extremities left knee extension +7 degrees, flexion 85 degrees Sensory Hearing: Functional Sensation Left Lower Extremity: Impaired Sensation Lower Extremities Patient still has numbness around his left knee. Transfers Roll Left to Right (QC): 6 Sit to Lying (QC): 6 Lying to Sitting/Side of Bed(Q: 6 Sit to Stand (QC): 4 Chair/Rkf-dv-Ipjfv Xfer(QC): 4 CGA for sit to stand and transfers. Cues for positioning and safety. Gait Does the Patient Walk?: Yes Mode of Locomotion: Walk Anticipated Mode of Locomotion: Walk Walk 10 feet (QC): 4 Walk 50 ft with 2 Turns(QC): 4 Distance: 60' Gait Assistive Device: FWW Comments/Gait Description Patient ambulates a little impulsively, but no knee buckling Balance Sitting Static: Normal Sitting Dynamic: Normal Standing Static: Normal Standing Dynamic: Fair Treatment Supine TKA protocol x10 (AP, QS, HS, SAQ, SLR), CPM donned and fit to patient's leg and set to 60/-2. Assessment/Needs Patient has impaired mobility, strength, endurance, ROM. Patient in bed post tx with nurse call, phone, tray, all needs met, polar care and CPM on, in the room. Rehab Potential: Fair PT Accounting Methods Analyst Goals Accounting Methods Analyst Goals PT Accounting Methods Analyst Goals Time Frame: Oct 15, 2019 Roll Left & Right (QC): 6 Sit to Lying (QC): 6 Lying-Sitting on Side/Bed(QC): 6 Sit to Stand (QC): 5 Chair/Taq-yo-Frdrh Xfer(QC): 5 Walk 10 feet (QC): 5 Walk 50ft with 2 Turns (QC): 5 Walk 150 ft (QC): 5 PT Plan Problem List Problem List: Activity Tolerance, Functional Strength, Safety, Balance, Gait, Transfer, Bed Mobility, ROM Treatment/Plan Treatment Plan: Continue Plan of Care Treatment Plan: Bed Mobility, Education, Functional Activity Deborah, Functional Strength, Gait, Safety, Therapeutic Exercise, Transfers Treatment Duration: Oct 15, 2019 Frequency: 11 times per week Estimated Hrs Per Day: .25 hour per day Patient and/or Family Agrees t: Yes Safety Risks/Education Patient Education: Gait Training, Transfer Techniques, Reviewed Use of Ice, Correct Positioning, Safety Issues Teaching Recipient: Patient Teaching Methods: Demonstration, Discussion Response to Teaching: Reinforcement Needed Discharge Recommendations Plan Patient will perform bed mobility and transfer training, balance and endurance training, functional strengthening, stair training, gait training, and education, to improve functional mobility and independence at home. Therapy Discharge Recommendati: Home & Family Time/GCodes Time In: 1351 Time Out: 1413 Total Billed Treatment Time: 22 Total Billed Treatment 1 visit EVL 22' KYLE MYERS PT Oct 08, 2019 14:26
[2019-10-08] MEDS: CEFUROXIME INJECTION 750 MG in WATER (STERILE) FOR INJECTION 10 ML IV SCH (15:42)
[2019-10-08] MEDS ORDERED: NON-FORMULARY MEDICATION 1 EA EA (Lisinopril/Hydrochlorothiazide (Lisinopril-Hctz 20-25 mg PO SCH (19:20)
[2019-10-08] MEDS: HYDROCHLOROTHIAZIDE 25 MG (HCTZ) TAB PO SCH (20:11)
[2019-10-08] MEDS: lisINopril 20 MG (PRINIVIL) TABLET PO SCH (20:11)
--- NOTE | 2019-10-08 22:27 | NUR ---
REPORT RECEIVED FROM JIM GARCIA. THIS RN WILL ASSUME CARE OF PT AT THIS TIME.
[2019-10-09] VITALS (7 sets, daily range): BP systolic 114–160; BP diastolic 55–88
[2019-10-09] MEDS: CEFUROXIME INJECTION 750 MG in WATER (STERILE) FOR INJECTION 10 ML IV SCH (00:07)
[2019-10-09] MEDS: NS IV 1000 ML 1,000 ML IV SCH ×2 (00:07→13:52)
[2019-10-09] MEDS: MULTIVIT W/MINERALS TAB (THERAGRAN M) PO SCH ×2 (04:34→21:12)
[2019-10-09 06:50] LABS: HEMOGLOBIN 12.6 G/DL (13.3-17.7)
--- NOTE | 2019-10-09 07:33 | Anesthesia-General Post-Op ---
General Patient Condition Mental Status/LOC: Same as Preop Cardiovascular: Satisfactory Nausea/Vomiting: Absent Respiratory: Satisfactory Pain: Controlled Complications: Absent Post Op Complications Complications None Follow Up Care/Instructions Patient Instructions None needed. Anesthesia/Patient Condition Patient Condition Patient is doing well, no complaints, stable vital signs, no apparent adverse anesthesia problems. No complications reported per nursing. RAMOS BAÑUELOS CRNA Oct 09, 2019 07:33
--- NOTE | 2019-10-09 07:55 | Progress Note ---
Standard Progress Note Progress Notes/Assess & Plan Date Seen by a Provider: Oct 09, 2019 Time Seen by a Provider: 07:53 Progress/Assessment & Plan post op check no complaints radiographs--HW well positioned without fracture LLE--2 plus DP pulse with brisk cap refill. Intact DF and PF of toes and ankle with intact sensation throughout s/p LTKA mobilize as able Final Diagnosis doing very well Vital Signs Date Time Temp Pulse Resp B/P (MAP) Pulse Ox O2 Delivery O2 Flow Rate FiO2 10/09/19 07:51 37.0 95 18 160/83 (108) 95 Room Air 10/09/19 04:00 36.7 87 18 124/70 (88) 93 Room Air 10/09/19 00:00 37.1 87 16 114/55 (74) 94 Room Air 10/08/19 21:10 96 Room Air 10/08/19 20:41 36.3 96 17 175/75 (108) 96 Room Air 10/08/19 16:15 36.9 93 15 138/79 (98) 93 Room Air 10/08/19 15:26 90 Room Air 10/08/19 14:23 90 Room Air 10/08/19 12:15 36.5 87 16 138/92 (107) 95 Nasal Cannula 3.00 10/08/19 10:25 36.5 89 18 160/94 (116) 95 Nasal Cannula 3.00 10/08/19 10:10 37 10 170/94 (119) 97 OxyMask 3 10/08/19 10:10 OxyMask 3 10/08/19 10:00 OxyMask 3 10/08/19 10:00 16 181/92 (121) 93 OxyMask 3 10/08/19 09:50 9 172/96 (121) 99 OxyMask 3 10/08/19 09:45 OxyMask 3 10/08/19 09:40 21 176/96 (122) 100 OxyMask 5 10/08/19 09:30 20 132/106 (115) 100 OxyMask 10 10/08/19 09:30 OxyMask 10 10/08/19 09:20 20 138/58 (84) 100 OxyMask 10 10/08/19 09:14 36.6 18 157/79 (105) 99 OxyMask 10 10/08/19 09:14 OxyMask 10 I & O 10/09/19 07:00 Intake Total 4004 ml Output Total 2100 ml Balance 1904 ml Laboratory Tests Test 10/09/19 06:45 Range/Units Hemoglobin 12.6 L 13.3-17.7 G/DL Hematocrit 39 L 40-54 % LLE--dressing intact. able to perform SLR without difficulty. No calf tenderness s/p LTKA doing well PT/OT MARK ANTHONY GONZALES MD Oct 09, 2019 07:54
[2019-10-09] MEDS ORDERED: ENOXAPARIN 30 MG/0.3 ML (LOVENOX) SYR SC SCH (08:00)
[2019-10-09] MEDS: ENOXAPARIN 40 MG/0.4 ML (LOVENOX) SYR SC SCH ×2 (08:39→21:12)
[2019-10-09] MEDS: oxyCODONE/APAP 5/325MG (PERCOCET 5) TABLET PO PRN ×8 (08:39→23:44)
[2019-10-09] MEDS: lisINopril 20 MG (PRINIVIL) TABLET PO SCH (08:39)
[2019-10-09] MEDS: HYDROCHLOROTHIAZIDE 25 MG (HCTZ) TAB PO SCH (08:39)
[2019-10-09] MEDS: SENNA W/DOCUSATE (SENOKOT S) TABLET PO SCH ×2 (08:40→21:12)
--- NOTE | 2019-10-09 08:56 | Physical Therapy Daily Note ---
PT Daily Note-Current Subjective Patient has minimal c/o left knee pain. Agrees to PT. RN to issue pain pill. Pain Numeric Pain Scale: 5-Moderate Pain Location: Left Location Body Site: Knee Pain Description: Acute Mental Status Patient Orientation: Normal For Age Attachments: IV Transfers SCALE: Activities may be completed with or without assistive devices. 6-Zpxzlsyepr-kpxmpqq completes the activity by him/herself with no assistance from a helper. 5-Set-up or Clean-up Assistance-helper sets up or cleans up; patient completes activity. Clyde assists only prior to or following the activity. 4-Supervision or Touching Assistance-helper provides verbal cues and/or touching/steadying and/or contact guard assistance as patient completes activity. Assistance may be provided throughout the activity or intermittently. 3-Partial/Moderate Assistance-helper does LESS THAN HALF the effort. Clyde lifts, holds or supports trunk or limbs, but provides less than half the effort. 2-Substantial/Maximal Assistance-helper does MORE THAN HALF the effort. Clyde lifts or holds trunk or limbs and provides more than half the effort. 0-Vspkgyzih-jepjdb does ALL the effort. Patient does none of the effort to complete the activity. Or, the assistance of 2 or more helpers is required for the patient to complete the activity. If activity was not attempted, code reason: 7-Patient Refused. 9-Not Applicable-not attempted and the patient did not perform the activity before the current illness, exacerbation or injury. 10-Not Attempted due to Environmental Limitations-(lack of equipment, weather restraints, etc.). 88-Not Attempted due to Medical Conditions or Safety Concerns. Roll Left & Right (QC): 6 Sit to Lying (QC): 6 Lying to Sitting/Side of Bed(Q: 6 Sit to Stand (QC): 6 Chair/Tkb-rm-Mrlum Xfer(QC): 6 Weight Bearing Left Lower Extremity: Left Weight Bearing/Tolerated Gait Training Does the Patient Walk?: Yes Distance: 500' Walk 10 feet (QC): 6 Walk 50 ft with 2 Turns(QC): 6 Walk 150 ft (QC): 6 Gait Assistive Device: FWW reciprocal pattern/slightly antalgic Exercises Supine Ex: Straight leg raise Supine Reps: 12 Seated Therapy Exercises: Ankle pumps, Long arc quads Seated Reps: 15 (2 set) Assessment Patient is up in recliner with needs met. PT to increase activity as tolerated by patient. PT Fpc Goals Fpc Goals PT Fpc Goals Time Frame: Oct 15, 2019 Roll Left & Right (QC): 6 Sit to Lying (QC): 6 Lying-Sitting on Side/Bed(QC): 6 Sit to Stand (QC): 5 Chair/Ljb-xc-Lxkuf Xfer(QC): 5 Walk 10 feet (QC): 5 Walk 50ft with 2 Turns (QC): 5 Walk 150 ft (QC): 5 PT Plan Treatment/Plan Treatment Plan: Continue Plan of Care Treatment Plan: Bed Mobility, Education, Functional Activity Deborah, Functional Strength, Gait, Safety, Therapeutic Exercise, Transfers Treatment Duration: Oct 15, 2019 Frequency: 11 times per week Estimated Hrs Per Day: .25 hour per day Patient and/or Family Agrees t: Yes Time/GCodes Time In: 825 Time Out: 848 Total Billed Treatment Time: 23 Total Billed Treatment 1 visit EX 11 min GT 12 min KANDI KIRAN PT Oct 09, 2019 08:56
[2019-10-09] MEDS ORDERED: NON-FORMULARY MEDICATION 1 EA EA (Lisinopril/Hydrochlorothiazide (Lisinopril-Hctz 20-25 mg PO SCH (09:00)
[2019-10-09] MEDS ORDERED: NON-FORMULARY MEDICATION 1 EA EA (Levothyroxine Sodium 175 MCG) PO SCH (09:00)
[2019-10-09] MEDS ORDERED: ASPIRIN E.C. 81 MG (ECOTRIN) TAB PO SCH (09:00)
--- NOTE | 2019-10-09 11:26 | Occ Therapy Progress Note ---
Therapy Progress Note OT order received, chart reviewed. Pt. up in chair. Pt. already dressed. OT spoke with him regarding needs and set up at home. Spouse in room. Pt. states that he was able to don his own shorts and socks this a.m., and was able to use toilet with no difficulty. Spouse will be home with him and is supportive. Pt. does have questions about outpt. PT vs. home health PT, and so OT answered those. Pt. requests for polar care pack to be removed, just so that he can bend his knee better. OT does this and pt. is able to flex/extend left knee while seated in chair. Pt. educates him on putting it back on later, or having nursing do it, to decrease inflammation. Pt. verbalizes this. Pt. reports that he feels like he is doing, "pretty good." OT explains that if pt. does have questions about functional abilities, to please have nursing consult OT again. OT would be happy to come back. At this time, no OT services needed. 1, visit x 20minutes [id number] HARJIT QUINN OT Oct 09, 2019 11:26
--- NOTE | 2019-10-09 12:25 | NUR ---
ISABELA/DANIEL visited with the patient for social service consult. Plan: The patient will return home with outpatient physical therapy and a front wheeled walker. Outpatient Physical Therapy: The patient chose [facility] for outpatient therapy. ISABELA/DANIEL contacted agency and made an appointment for the patient. It is scheduled for October 12 at 1:15 p.m. ISABELA/DANIEL wrote this information on a card for the patient. He verbalized understanding. ISABELA/DANIEL faxed over referral form and clinical to agency. DME: The patient was provided a patient preference form. He chose [facility]. ISABELA/DANIEL faxed script, face sheet, insurance card, and H&P. They will deliver to the hospital. No further questions or concerns at this time.
--- NOTE | 2019-10-09 13:21 | Physical Therapy Daily Note ---
PT Daily Note-Current Subjective Patient reports increase in left knee pain. PT instructed patient this is normal and to continue with his pain regimen. Patient voices understanding. Spouse present. Pain Numeric Pain Scale: 8 Location: Left Location Body Site: Knee Pain Description: Acute Mental Status Patient Orientation: Normal For Age Attachments: IV Transfers SCALE: Activities may be completed with or without assistive devices. 0-Abvnzvolpl-jbtfznd completes the activity by him/herself with no assistance from a helper. 5-Set-up or Clean-up Assistance-helper sets up or cleans up; patient completes activity. [place] assists only prior to or following the activity. 4-Supervision or Touching Assistance-helper provides verbal cues and/or touching/steadying and/or contact guard assistance as patient completes activity. Assistance may be provided throughout the activity or intermittently. 3-Partial/Moderate Assistance-helper does LESS THAN HALF the effort. [place] lifts, holds or supports trunk or limbs, but provides less than half the effort. 2-Substantial/Maximal Assistance-helper does MORE THAN HALF the effort. [place] lifts or holds trunk or limbs and provides more than half the effort. 6-Gxwaxhyby-isfoxk does ALL the effort. Patient does none of the effort to complete the activity. Or, the assistance of 2 or more helpers is required for the patient to complete the activity. If activity was not attempted, code reason: 7-Patient Refused. 9-Not Applicable-not attempted and the patient did not perform the activity before the current illness, exacerbation or injury. 10-Not Attempted due to Environmental Limitations-(lack of equipment, weather restraints, etc.). 88-Not Attempted due to Medical Conditions or Safety Concerns. Roll Left & Right (QC): 6 Sit to Lying (QC): 6 Lying to Sitting/Side of Bed(Q: 6 Sit to Stand (QC): 6 Weight Bearing Left Lower Extremity: Left Weight Bearing/Tolerated Gait Training Does the Patient Walk?: Yes Distance: 500' Walk 10 feet (QC): 6 Walk 50 ft with 2 Turns(QC): 6 Walk 150 ft (QC): 6 Gait Assistive Device: FWW reciprocal pattern Exercises Supine Ex: Ankle pumps, Quad Set, Heel Slides, Straight leg raise Supine Reps: 15 (2 sets) Seated Therapy Exercises: Ankle pumps, Long arc quads Seated Reps: 15 (2 sets) Assessment CPM 0-80 degrees and polar pack in place. Patient reports he had the CPM up to 100 degrees last night (he increased it himself per his report). PT educated patient in importance of allowing the skilled staff to increase the CPM per physician's protocol. Plan dismissal in a.m. PT Grocery Clerk Selling Goals Grocery Clerk Selling Goals PT Alf Goals Time Frame: Oct 15, 2019 Roll Left & Right (QC): 6 Sit to Lying (QC): 6 Lying-Sitting on Side/Bed(QC): 6 Sit to Stand (QC): 5 Chair/Wsx-zw-Uibpa Xfer(QC): 5 Walk 10 feet (QC): 5 Walk 50ft with 2 Turns (QC): 5 Walk 150 ft (QC): 5 PT Plan Treatment/Plan Treatment Plan: Continue Plan of Care Treatment Plan: Bed Mobility, Education, Functional Activity Deborah, Functional Strength, Gait, Safety, Therapeutic Exercise, Transfers Treatment Duration: Oct 15, 2019 Frequency: 11 times per week Estimated Hrs Per Day: .25 hour per day Patient and/or Family Agrees t: Yes Time/GCodes Time In: 1245 Time Out: 1312 Total Billed Treatment Time: 27 Total Billed Treatment 1 visit EX 16 min GT 11 min KANDI KIRAN PT Oct 09, 2019 13:21
[2019-10-10] MEDS: NS IV 1000 ML 1,000 ML IV SCH (00:02)
--- NOTE | 2019-10-10 01:49 | DISCHARGE SUMMARY ---
DATE OF SERVICE: DIAGNOSES: 1. Left knee primary osteoarthritis. 2. Hypertension. PROCEDURE: Left total knee arthroplasty. SUMMARY: The patient is a 59-year-old gentleman who underwent a left total knee arthroplasty on the day of admission. Postoperatively, he did very well. At time of discharge, his wound was clean and dry, had no calf tenderness. Negative Brett signs. He is tolerating his diet well and tolerating pain with oral pain medication. CONDITION AT DISCHARGE: Good. DISCHARGE DIET: Regular. FOLLOWUP: In three weeks. Home physical therapy has been arranged. DISCHARGE MEDICATIONS: Home medications, Percocet as needed for pain and one aspirin per day for 30 days. ACTIVITIES: Weightbearing as tolerated with assistive devices as needed. Job ID: [id number] DocumentID: [id number] Dictated Date: 10/09/2019 17:53:17 Senior Mechanical Project Manager Date: 10/10/2019 01:48:39 Dictated By: MARK ANTHONY GONZALES MD
[2019-10-10 03:07] VITALS: BP 157/85
[2019-10-10] MEDS: oxyCODONE/APAP 5/325MG (PERCOCET 5) TABLET PO PRN (04:36)
[2019-10-10 06:30] LABS: HEMOGLOBIN 12.8 G/DL (13.3-17.7)
--- NOTE | 2019-10-10 06:50 | NUR ---
DR. GONZALES IN TO SEE PT.
[2019-10-10] MEDS ORDERED: morphine INJ 4 MG/ML 1 ML (VIAL/SYRINGE) IVP PRN (07:00)
--- NOTE | 2019-10-10 07:02 | Progress Note ---
Standard Progress Note Progress Notes/Assess & Plan Date Seen by a Provider: Oct 10, 2019 Time Seen by a Provider: 07:01 Progress/Assessment & Plan post op check no complaints radiographs--HW well positioned without fracture LLE--2 plus DP pulse with brisk cap refill. Intact DF and PF of toes and ankle with intact sensation throughout s/p LTKA mobilize as able Final Diagnosis no complaints Vital Signs Date Time Temp Pulse Resp B/P (MAP) Pulse Ox O2 Delivery O2 Flow Rate FiO2 10/10/19 03:07 36.8 89 20 157/85 (109) 95 Room Air 10/09/19 23:57 36.6 96 20 129/76 (93) 95 Room Air 10/09/19 21:00 Room Air 10/09/19 19:43 36.8 85 16 140/84 (102) 95 Room Air 10/09/19 16:23 36.6 86 17 143/75 (97) 95 Room Air 10/09/19 11:50 36.9 88 16 146/88 (107) 97 Room Air 10/09/19 09:00 95 Room Air 10/09/19 07:51 37.0 95 18 160/83 (108) 95 Room Air I & O 10/10/19 07:00 Intake Total 5300 ml Output Total 3425 ml Balance 1875 ml Laboratory Tests Test 10/10/19 05:26 Range/Units Hemoglobin 12.8 L 13.3-17.7 G/DL Hematocrit 40 40-54 % LLE--incision clean and dry. No calf tenderness. Neg Brett's s/pLTKA doing well DC after PT today MARK ANTHONY GONZALES MD Oct 10, 2019 07:02
[2019-10-10] MEDS: ENOXAPARIN 40 MG/0.4 ML (LOVENOX) SYR SC SCH (08:00)
--- NOTE | 2019-10-10 09:02 | Physical Therapy Daily Note ---
PT Daily Note-Current Subjective Patient agrees to PT and is anxious to dismiss to home ABDI. Pain Numeric Pain Scale: 8 Location: Left Location Body Site: Knee Pain Description: Acute Mental Status Patient Orientation: Normal For Age Transfers SCALE: Activities may be completed with or without assistive devices. 0-Eydqxmpppd-ddlhsqa completes the activity by him/herself with no assistance from a helper. 5-Set-up or Clean-up Assistance-helper sets up or cleans up; patient completes activity. [place] assists only prior to or following the activity. 4-Supervision or Touching Assistance-helper provides verbal cues and/or touching/steadying and/or contact guard assistance as patient completes activity. Assistance may be provided throughout the activity or intermittently. 3-Partial/Moderate Assistance-helper does LESS THAN HALF the effort. [place] lifts, holds or supports trunk or limbs, but provides less than half the effort. 2-Substantial/Maximal Assistance-helper does MORE THAN HALF the effort. [place] lifts or holds trunk or limbs and provides more than half the effort. 0-Mfdwkdxvl-dmuufu does ALL the effort. Patient does none of the effort to complete the activity. Or, the assistance of 2 or more helpers is required for the patient to complete the activity. If activity was not attempted, code reason: 7-Patient Refused. 9-Not Applicable-not attempted and the patient did not perform the activity before the current illness, exacerbation or injury. 10-Not Attempted due to Environmental Limitations-(lack of equipment, weather restraints, etc.). 88-Not Attempted due to Medical Conditions or Safety Concerns. Sit to Stand (QC): 6 Weight Bearing Left Lower Extremity: Left Weight Bearing/Tolerated Gait Training Distance: 300' x 2 Walk 10 feet (QC): 6 Walk 50 ft with 2 Turns(QC): 6 Walk 150 ft (QC): 6 Gait Assistive Device: FWW antalgic, functional gait sequence Stair Training Stair Training: Handrails/: 1 handrail, uses walker #of Steps: 2 1 Step (curb) (QC): 6 Assessment Patient tolerated treatment well and has been instructed to perform HEP issued by physician 3/day at 15 reps. Patient voices understanding. PT Long-Term Goals Barn Worker Goals PT Barn Worker Goals Time Frame: Oct 15, 2019 Roll Left & Right (QC): 6 Sit to Lying (QC): 6 Lying-Sitting on Side/Bed(QC): 6 Sit to Stand (QC): 5 Chair/Jxy-ib-Shxkk Xfer(QC): 5 Walk 10 feet (QC): 5 Walk 50ft with 2 Turns (QC): 5 Walk 150 ft (QC): 5 PT Plan Treatment/Plan Treatment Plan: Discontinue PT, goals met Treatment Plan: Bed Mobility, Education, Functional Activity Deborah, Functional Strength, Gait, Safety, Therapeutic Exercise, Transfers Treatment Duration: Oct 15, 2019 Frequency: 11 times per week Estimated Hrs Per Day: .25 hour per day Patient and/or Family Agrees t: Yes Time/GCodes Time In: 805 Time Out: 819 Total Billed Treatment Time: 14 Total Billed Treatment 1 visit FA 14 min KANDI KIRAN PT Oct 10, 2019 09:02
--- NOTE | 2019-10-10 14:44 | NUR ---
Patient discharged home. CM/SS contacted [facility] to verify they delivered walker. She stated they tried to but patient had already discharged. The patient stopped by the DME and picked it up. No further needs.
== END 2019-10-10 08:30 | disposition home or self-care (01) | DRG 470 ==
LOC: 4TH 05:58 → SURG 05:59 → 4TH 10:20
PROVIDERS: ADMIT Orthopaedic Surgery; ATTEND Orthopaedic Surgery
PROC: 0SRD0J9 Replacement of Left Knee Joint with Synthetic Substitute, Cemented, Open Approach (ICD-10-PCS; principal; 2019-10-08 07:29)
DX: M17.12 Unilateral primary osteoarthritis, left knee (principal); I10 Essential (primary) hypertension; E03.9 Hypothyroidism, unspecified; Z90.49 Acquired absence of other specified parts of digestive tract
CPT/HCPCS: 36415; 73560; 85014; 85018; 86850; 86900; 86901; 87081; 94664

== ENCOUNTER 2019-10-15 00:07 | Emergency (ER) | payer BC ==
[~2019-10-15] VITALS: Ht 170.1 cm; Wt 114.3 kg
[~2019-10-15 00:07] MED LIST changes: +OXYC1TAB87 PO
--- OUTSIDE RECORDS SUMMARY | 2019-10-15 00:14 | XMS REPORT ---
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 Name Role Phone Migration, Doctor Unavailable Unavailable PROBLEMS Type Condition ICD9-CM Code [id number] Code Onset Dates Condition S tatus SNOMED Code Problem Urinary tract infection, site not specified 599.0 Active 77349227 Problem Psychosexual dysfunction with inhibited sexual excitement 302.72 Active 855234352660453 Problem Other specified examination V72.85 Ac tive 734439461 Problem Health examination of defined subpopulation V70.5 Active 964135480 Problem Dysuria 788.1 Active 85612126 Problem Hematuria, unspecified 599.70 Active 02411859 ALLERGIES No Information ENCOUNTERS Encounter Location Date Diagnosis [facility] [address] [id number] [address] [place] [id number] Sep, Dental examination V72.2 [facility] [address] [id number] [address] [place] [phone] Jul, [facility] [address] [id number] [address] [place] [phone] Jul, [facility] [address] [id number] [address] [place] [phone] Apr, [facility] [address] [id number] [address] [place] [phone] Apr, [facility] [address] [id number] [address] [place] [id number] Feb, [facility] [address] [id number] [address] [place] [phone] Feb, [facility] [address] [id number] [address] [place] [phone] Jan, [facility] [address] [id number] [address] [place] [phone] Dec, [facility] [address] [id number] [address] [place] [address], [place] [id number] Nov, [facility] [address] [id number] [address] [place] [address], [place] [id number] Oct, [facility] [address] [id number] [address] [place] [address], [place] [id number] Oct, [facility] [address] [id number] [address] [place] [address], [place] [id number] Oct, [facility] [address] [id number] [address] [place] [address], [place] [id number] Oct, [facility] [address] [id number] [address] [place] [address], [place] [id number] Sep, [facility] [address] [id number] [address] [place] [address], [place] [id number] Sep, [facility] [address] [id number] [address] [place] [address], [place] [id number] Sep, [facility] [address] [id number] [address] [place] [address], [place] [id number] Sep, [facility] [address] [id number] [address] [place] [address], [place] [id number] Jul, [facility] [address] [id number] [address] [place] [address], [place] [id number] Jul, [facility] [address] [id number] [address] [place] [address], [place] [id number] Jul, [facility] [address] [id number] [address] [place] [address], [place] [id number] May, [facility] [address] [id number] [address] [place] [address], [place] [id number] Apr, [facility] [address] [id number] [address] [place] [address], [place] [id number] Apr, [facility] [address] [id number] [address] [place] [address], [place] [id number] Apr, [facility] [address] [id number] [address] [place] [address], [place] [id number] Apr, [facility] [address] [id number] [address] [place] [address], [place] [id number] Feb, [facility] [address] [id number] [address] [place] [address], [place] [id number] Feb, [facility] [address] [id number] [address] [place] [address], [place] [id number] Feb, [facility] [address] [id number] [address] [place] [address], [place] [id number] Jan, [facility] [address] [id number] [address] [place] [address], [place] [id number] Jan, [facility] [address] [id number] [address] [place] [address], [place] [id number] Jan, [facility] [address] [id number] [address] [place] [address], [place] [id number] Jan, [facility] [address] [id number] [address] [place] [address], [place] [id number] Dec, [facility] [address] [id number] [address] [place] [address], [place] [id number] Dec, [facility] [address] [id number] [address] [place] [address], [place] [id number] Sep, [facility] [address] [id number] [address] [place] [address], [place] [id number] Sep, [facility] [address] [id number] [address] [place] [address], [place] [id number] Jun, [facility] [address] [id number] [address] [place] [address], [place] [id number] Apr, [facility] [address] [id number] [address] [place] [address], [place] [id number] Jan, [facility] [address] [facility] [id number] [address] [place] [address] Jan, IMMUNIZATIONS No Known Immunizations SOCIAL HISTORY Never Assessed REASON FOR VISIT PLAN OF CARE VITAL SIGNS MEDICATIONS Unknown Medications RESULTS No Results PROCEDURES No Known procedures INSTRUCTIONS MEDICATIONS ADMINISTERED No Known Medications
--- OUTSIDE RECORDS SUMMARY | 2019-10-15 00:14 | XMS REPORT ---
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 Name Role Phone REJIZHAO Unavailable PROBLEMS Type Condition ICD9-CM Code XTK15-AQ Code Onset Dates Condition S tatus SNOMED Code Problem Urinary tract infection, site not specified 599.0 Active 22658674 Problem Psychosexual dysfunction with inhibited sexual excitement 302.72 Active 955035975309834 Problem Other specified examination V72.85 Ac tive 449916064 Problem Health examination of defined subpopulation V70.5 Active 255475700 Problem Dysuria 788.1 Active 39097244 Problem Hematuria, unspecified 599.70 Active 86288553 ALLERGIES No Information ENCOUNTERS Encounter Location Date Diagnosis [facility] [address] [id number] [address] [place] [address] [id number] Sep, 2014 Dental examination V72.2 [facility] [address] [facility] [id number] [address] [place] [phone] Jul, [facility] [address] [facility] [id number] [address] [place] [phone] Jul, [facility] [address] [facility] [id number] [address] [place] [phone] Apr, [facility] [address] [facility] [id number] [address] [place] [phone] Apr, [facility] [address] [facility] [id number] [address] [place] [phone] Feb, [facility] [address] [facility] [id number] [address] [place] [phone] Feb, [facility] [address] [facility] [id number] [address] [place] [phone] Jan, [facility] [address] [id number] [address] [place] [address], [place] [id number] Dec, [facility] [address] [id number] [address] [place] [address], [place] [id number] Nov, [facility] [address] [id number] [address] [place] [address], [place] [id number] Oct, [facility] [address] [id number] [address] [place] [address], [place] [id number] Oct, [facility] [address] [id number] [address] [place] [address], [place] [phone] Oct, [facility] [address] [id number] [address] [place] [address], [place] [id number] Oct, [facility] [address] [id number] [address] [place] [address], [place] [id number] Sep, [facility] [address] [id number] [address] [place] [address], [place] [id number] Sep, [facility] [address] [id number] [address] [place] [address], [place] [id number] Sep, [facility] [address] [id number] [address] [place] [address], [place] [id number] Sep, [facility] [address] [id number] [address] [place] [address], [place] [phone] Jul, [facility] [address] [id number] [address] [place] [phone] Jul, [facility] [address] [id number] [address] [place] [address], [place] [id number] Jul, [facility] [address] [id number] [address] [place] [address], [place] [id number] May, [facility] [address] [id number] [address] [place] [address], [place] [id number] Apr, [facility] [address] [id number] [address] [place] [phone] Apr, [facility] [address] [id number] [address] [place] [address], [place] [id number] Apr, [facility] [address] [id number] [address] [place] [address], [place] [id number] Apr, [facility] [address] [id number] [address] [place] [address], [place] [id number] Feb, [facility] [address] [id number] [address] [place] [address], [place] [id number] Feb, [facility] [address] [id number] [address] [place] [address], [place] [phone] Feb, [facility] [address] [id number] [address] [place] [address], [place] [id number] Jan, [facility] [address] [id number] [address] [place] [address], [place] [id number] Jan, [facility] [address] [id number] [address] [place] [address], [place] [phone] Jan, [facility] [address] [id number] [address] [place] [address], [place] [id number] Jan, [facility] [address] [id number] [address] [place] [address], [place] [phone] Dec, [facility] [address] [id number] [address] [place] [address], [place] [id number] 15 Dec, 2011 [facility] [address] [id number] [address] [place] [address], [place] [address] Sep, [facility] [address] [id number] [address] [place] [address], [place] [address] Sep, [facility] [address] [id number] [address] [place] [address], [place] [id number] Jun, [facility] [address] [id number] [address] [place] [address], [place] [id number] Apr, [facility] [address] [facility] [id number] [address] [place] [address] Jan, [facility] [address] [facility] [id number] [address] [place] [address] Jan, IMMUNIZATIONS No Known Immunizations SOCIAL HISTORY Never Assessed REASON FOR VISIT PLAN OF CARE VITAL SIGNS MEDICATIONS Unknown Medications RESULTS No Results PROCEDURES No Known procedures INSTRUCTIONS MEDICATIONS ADMINISTERED No Known Medications
--- NOTE | 2019-10-15 00:27 | ED Lower Extremity ---
General Chief Complaint: Lower Extremity Stated Complaint: LEFT LEG PAIN,POST OP KNEE REPLACEMENT Source: patient Exam Limitations: no limitations History of Present Illness Date Seen by Provider: Oct 15, 2019 Time Seen by Provider: 00:10 Initial Comments Patient presents ER by private conveyance with his spouse and chief complaint th at he had his left knee replaced by Dr. Manzano Sunday, 6 days ago. He says the pain today started getting worse but is not in his knee itself is leg inferior to the knee. He says it feels tight and rates it as a 20 out of 10. He's been using hydrocodone unknown strength with no relief. No history of blood clots. No chest pain shortness of breath fevers chills. Patient says the pain started to get worse today. He denies that he spoke to the surgeon all day. Allergies and Home Medications Allergies Coded Allergies: No Known Drug Allergies (Unverified , 09/24/19) Home Medications Glucosamine/D3/Boswellia Areli 1 Each Tablet, 1 EACH PO BID, (Reported) Levothyroxine Sodium 175 Mcg Tablet, 175 MCG PO DAILY, (Reported) Lisinopril/Hydrochlorothiazide 1 Each Tablet, 1 EACH PO DAILY, (Reported) Oxycodone HCl/Acetaminophen 1 Each Tablet, 1 TAB PO Q4H Prescribed by: MARK ANTHONY MANZANO on 10/08/19 0732 Patient Home Medication List Home Medication List Reviewed: Yes Review of Systems Constitutional: No chills, No diaphoresis EENTM: No ear discharge, No ear pain Respiratory: No cough, No short of breath Cardiovascular: No chest pain, No edema Gastrointestinal: No abdominal pain, No constipation, No diarrhea Genitourinary: No discharge, No dysuria Musculoskeletal: see HPI; No back pain, No joint pain Skin: No pruritus, No rash All Other Systems Reviewed Negative Unless Noted: Yes Past Tfwdmam-[id number]-Tyxnvj Hx Patient Social History Alcohol Use: Denies Use Recreational Drug Use: No Smoking Status: Current Everyday Smoker Type Used: Cigarettes 2nd Hand Smoke Exposure: No Recent Foreign Travel: No Contact w/Someone Who Travel: No Recent Hopitalizations: No Immunizations Up To Date Tetanus Booster (TDap): Unknown PED Vaccines UTD: No Seasonal Allergies Seasonal Allergies: No Past Medical History Surgeries: Yes (bilat CTR, bilat ulnar release) Gallbladder Respiratory: No Currently Using CPAP: No Currently Using BIPAP: No Cardiac: Yes Hypertension Neurological: No Reproductive Disorders: No Sexually Transmitted Disease: No HIV/AIDS: No Genitourinary: Yes Kidney Stones Gastrointestinal: No Musculoskeletal: Yes Arthritis Endocrine: Yes Hypothyroidsim HEENT: Yes (CONTACTS) Loss of Vision: Denies Hearing Impairment: Denies Cancer: No Psychosocial: No Integumentary: No Blood Disorders: No Adverse Reaction/Blood Tranf: No (N/A) Family Medical History No Pertinent Family Hx Physical Exam Vital Signs Vital Signs - First Documented 10/15/19 00:13 Temp 37.0 Pulse 109 Resp 22 B/P (MAP) 150/87 (108) Capillary Refill : Height, Weight, BMI Height: 5'7.00" Weight: 256lbs. 6.0oz. [id number]; 41.14 BMI Method:Stated General Appearance: WD/WN, mild distress HEENT: PERRL/EOMI, pharynx normal Neck: full range of motion, normal inspection Cardiovascular: normal peripheral pulses, regular rate, rhythm Respiratory: lungs clear, normal breath sounds, no respiratory distress, no accessory muscle use Gastrointestinal: normal bowel sounds, non tender, soft Hips: bilateral hip non-tender, bilateral hip normal inspection, bilateral hip normal range of motion, bilateral hip no evidence of injury Legs: right leg non-tender, right leg normal inspection; bilateral leg normal range of motion; right leg no evidence of injury; left leg soft tissue tenderness, left leg swelling ([id number] erythema over the anterior ramos with 1-2+ pitting edema on the left side.) Knees: right knee non-tender, right knee normal inspection, right knee normal range of motion, right knee no evidence of injury; left knee bone tenderness, left knee soft tissue tenderness (status post TKA), left knee swelling (no significant erythema, induration or exudate.), left knee other (surgical wound is clean dry and intact and covered with a dressing.) Ankles: bilateral ankle non-tender, bilateral ankle normal inspection, bilatera l ankle normal range of motion, bilateral ankle no evidence of injury Neurologic/Psychiatric: no motor/sensory deficits, alert, normal mood/affect, oriented x 3 Skin: other (erythema warmth and tenderness to soft tissue with swelling over the left lower leg inferior to the left knee.) Procedures/Interventions Suture Size: 3-0 Progress/Results/Core Measures Results/Orders Lab Results Laboratory Tests Test 10/15/19 00:40 Range/Units White Blood Count 10.9 4.3-11.0 10^3/uL Red Blood Count 4.29 L 4.35-5.85 10^6/uL Hemoglobin 12.8 L 13.3-17.7 G/DL Hematocrit 39 L 40-54 % Mean Corpuscular Volume 91 80-99 FL Mean Corpuscular Hemoglobin 30 25-34 PG Mean Corpuscular Hemoglobin Concent 33 32-36 G/DL Red Cell Distribution Width 14.4 10.0-14.5 % Platelet Count 286 130-400 10^3/uL Mean Platelet Volume 10.0 7.4-10.4 FL Neutrophils (%) (Auto) 71 42-75 % Lymphocytes (%) (Auto) 18 12-44 % Monocytes (%) (Auto) 9 0-12 % Eosinophils (%) (Auto) 2 0-10 % Basophils (%) (Auto) 1 0-10 % Neutrophils # (Auto) 7.8 1.8-7.8 X 10^3 Lymphocytes # (Auto) 1.9 1.0-4.0 X 10^3 Monocytes # (Auto) 1.0 0.0-1.0 X 10^3 Eosinophils # (Auto) 0.2 0.0-0.3 10^3/uL Basophils # (Auto) 0.1 0.0-0.1 10^3/uL Sodium Level 135 135-145 MMOL/L Potassium Level 3.8 3.6-5.0 MMOL/L Chloride Level 100 98-107 MMOL/L Carbon Dioxide Level 22 21-32 MMOL/L Anion Gap 13 5-14 MMOL/L Blood Urea Nitrogen 20 H 7-18 MG/DL Creatinine 1.28 0.60-1.30 MG/DL Estimat Glomerular Filtration Rate 58 BUN/Creatinine Ratio 16 Glucose Level 123 H 70-105 MG/DL Calcium Level 10.1 8.5-10.1 MG/DL Corrected Calcium 10.0 8.5-10.1 MG/DL Total Bilirubin 1.5 H 0.1-1.0 MG/DL Aspartate Amino Transf (AST/SGOT) 21 5-34 U/L Alanine Aminotransferase (ALT/SGPT) 53 0-55 U/L Alkaline Phosphatase 77 40-136 U/L C-Reactive Protein High Sensitivity 8.33 H 0.00-0.50 MG/DL Total Protein 7.6 6.4-8.2 GM/DL Albumin 4.1 3.2-4.5 GM/DL My Orders Orders - INDER MCGEE Xavier Cbc With Automated Diff (10/15/19 00:20) Comprehensive Metabolic Panel (10/15/19 00:20) Hs C Reactive Protein (10/15/19 00:20) Ed Iv/Invasive Line Start (10/15/19 00:20) Fentanyl Injection (Sublimaze Injection (10/15/19 00:30) Medications Given in ED Current Medications Medications Dose Ordered Sig/Luis Armando Route Start Time Stop Time Status Last Admin Dose Admin Fentanyl Citrate 75 mcg ONCE ONCE IVP 10/15/19 00:30 10/15/19 00:31 DC 10/15/19 00:39 75 MCG Vital Signs/I&O 10/15/19 00:13 Temp 37.0 Pulse 109 Resp 22 B/P (MAP) 150/87 (108) Progress Progress Note #1: Time: 00:35 Progress Note Cellulitis versus less likely a clot. We'll get some labs and probably cover him with antibiotics if is any markers of inflammation still elevated. May cover him with Lovenox and have him get ultrasound tomorrow when ultrasound is available outpatient. 75 g IV fentanyl for pain. Progress Note #2: Time: 01:32 Progress Note On repeat examination patient is asleep. He says his pain is significantly improved. Can give him a couple doses of hydrocodone to go and put him on Lovenox and Ancef. Plan to get ultrasound morning and have him follow-up with maco mcclendon. Continue Keflex outpatient. Departure Impression Primary Impression: Left leg pain Disposition: HOME, SELF-CARE Condition: Stable Departure-Patient Inst. Decision time for Depature: 01:33 Referrals: MARK ANTHONY MANZANO MD (PCP) Primary Care Physician AUSTIN BECKWITH MD (Family) Primary Care Physician Patient Instructions: Cellulitis (Skin Infection), Adult (DC), Deep Vein Thrombosis (Blood Clots in the Legs) Add. Discharge Instructions: Tomorrow morning during business hours give your surgeon a call as well as schedule an outpatient ultrasound by calling registration at the top of the order sheet. support team member the Keflex and take one capsule 4 times a day for the next 10 days. Return to the ER to begin to have chest pain or shortness of breath. All discharge instructions reviewed with patient and/or family. Voiced understanding. Scripts Cephalexin (Keflex) 500 Mg Capsule 500 MG PO QID for 10 Days, #40 CAP 0 Refills Prov: INDER MCGEE 10/15/19 Copy Copies To 1: MARK ANTHONY MANZANO MD, TITUS J Oct 15, 2019 00:27
[2019-10-15] MEDS ORDERED: fentaNYL INJECTION 100 MCG/2 ML AMP IVP ONE (00:30)
[2019-10-15 00:58] LABS: BASOPHILS # (AUTO) 0.1 10^3/uL (0.0-0.1); BASOPHILS % (AUTO) 1 % (0-10); EOSINOPHILS # (AUTO) 0.2 10^3/uL (0.0-0.3); EOSINOPHILS % (AUTO) 2 % (0-10); HEMATOCRIT 39 % (40-54); HEMOGLOBIN 12.8 G/DL (13.3-17.7); LYMPHOCYTES # (AUTO) 1.9 X 10^3 (1.0-4.0); LYMPHOCYTES % (AUTO) 18 % (12-44); MEAN CORPUSCULAR HEMOGLOBIN 30 PG (25-34); MEAN CORPUSCULAR HGB CONC 33 G/DL (32-36); MEAN CORPUSCULAR VOLUME 91 FL (80-99); MONOCYTES % (AUTO) 9 % (0-12); NEUTROPHILS # (AUTO) 7.8 X 10^3 (1.8-7.8); NEUTROPHILS % (AUTO) 71 % (42-75); PLATELET COUNT 286 10^3/uL (130-400); RED CELL DISTRIBUTION WIDTH 14.4 % (10.0-14.5); WHITE BLOOD COUNT 10.9 10^3/uL (4.3-11.0)
[2019-10-15 01:00] LABS: ALBUMIN 4.1 GM/DL (3.2-4.5)
[2019-10-15 01:01] LABS: POTASSIUM 3.8 MMOL/L (3.6-5.0)
[2019-10-15 01:02] LABS: CALCIUM 10.1 MG/DL (8.5-10.1)
[2019-10-15 01:03] LABS: TOTAL PROTEIN 7.6 GM/DL (6.4-8.2)
[2019-10-15 01:05] LABS: BILIRUBIN,TOTAL 1.5 MG/DL (0.1-1.0)
[2019-10-15 01:07] LABS: CREATININE SERUM 1.28 MG/DL (0.60-1.30)
[2019-10-15] MEDS ORDERED: CEPH-507 PO (01:35)
[2019-10-15] MEDS ORDERED: ceFAZolin INJECTION 1,000 MG in WATER (STERILE) FOR INJECTION 10 ML IV ONE (01:45)
[2019-10-15] MEDS ORDERED: HYDROcodone/APAP 5 MG/325 MG (LORTAB) TAB PO ONE (01:45)
[2019-10-15] MEDS ORDERED: ENOXAPARIN 60 MG/0.6 ML (LOVENOX) SYR SC ONE (01:45)
[2019-10-15 01:49] VITALS: BP 144/87
== END 2019-10-15 01:49 | disposition home or self-care (01) ==
LOC: EDUNIT# 00:07 → ER 00:09
DX: M79.605 Pain in left leg (principal); I10 Essential (primary) hypertension; E03.9 Hypothyroidism, unspecified; F17.210 Nicotine dependence, cigarettes, uncomplicated; Z79.890 Hormone replacement therapy; Z96.652 Presence of left artificial knee joint
CPT/HCPCS: 36415; 80053; 85025; 86141

== ENCOUNTER 2019-12-25 14:49 | Outpatient (RCR) | payer BC ==
[~2019-12-25 14:49] MED LIST changes: +CEPH-507 PO
== END 2020-01-11 | disposition home or self-care (01) ==
PROVIDERS: ATTEND Orthopaedic Surgery
DX: Z47.1 Aftercare following joint replacement surgery (principal); Z96.652 Presence of left artificial knee joint